=== PATIENT | female | born 1955 | race Caucasian/White ===

== ENCOUNTER 2016-05-30 03:29 | Inpatient (IN) | payer OTHER ==
[~2016-05-30] VITALS: Ht 162.6 cm; Wt 128.8 kg
[~2016-05-30 03:29] MED LIST: AMOX-CLAV 875-1 EACH PO; ATORVASTATIN CA40 M1 PO; CARVEDILOL25 M1 PO; ECOTRIN81 M1 PO; FUROSEMIDE40 M1 PO; HUMALOG KW100 UNIT/1 SC; LEVEMIR FL100 UNIT/1 SC; LOSARTAN POTAS100 M1 PO; SPIRIVA18 MCG INH; SYMBICORT 16010.2 GM INH
--- NOTE | 2016-05-30 03:54 | NUR ---
PT BIBA FROM HOME W/ SOB. EMS REPORTS PT SOB X2 DAYS. EMS ADMIN. 1 NEB TX EN ROUTE AND 4 NITROS. UPON ARRIVAL PT SOB, LABORED, USING ACCESSORY MUSCLES TO BREATHE. SATTING 98% ON 100% NONREBREATHER. PT AWAKE AND ALERT, BUT NOT RESPONDING TO QUESTIONS AT THIS TIME BUT FOLLOWING COMMANDS. DENIES CHEST PAIN.
--- NOTE | 2016-05-30 03:54 | NUR ---
AT BEDSIDE UPON ARRIVAL.
--- NOTE | 2016-05-30 03:55 | NUR ---
RESP. AT BEDSIDE.
--- NOTE | 2016-05-30 03:59 | NUR ---
BLOOD DRAWN AND SENT TO LAB SST, LAV, BLUE , IRVIN
--- NOTE | 2016-05-30 04:01 | ED DYSPNEA/ASTHMA COMPLAINT ---
History of Present Illness General Chief Complaint: Dyspnea (COPD, CHF, Other) Stated Complaint: BIBA SOB Source: patient, family, old records, EMS Exam Limitations: clinical condition Vital Signs & Intake/Output Vital Signs & Intake/Output Vital Signs Date Time Temp Pulse Resp B/P Pulse O2 O2 Flow FiO2 Ox Delivery Rate 05/30 433 99.4 84 20 148/76 97 BIPAP 40% 05/30 0422 102 194/102 05/30 0410 98 Non 100% ReBreather 05/30 401 98 BIPAP 40% 05/30 0355 100 99 05/30 0348 99.9 102 24 194/102 98 Non 100% ReBreather Allergies Coded Allergies: NO KNOWN ALLERGIES (11/20/12) Reconcile Medications Aspirin (Ecotrin) 81 MG TABLET.DR 1 TAB PO DAILY HEART HEALTH (Reported) Atorvastatin Calcium 40 MG TABLET 40 MG PO 1700 CHOLESTEROL Budesonide/Formoterol Fumarate (Symbicort 160-4.5 Mcg Inhaler) 10.2 GM HFA.AER.AD 2 PUF INH BID COPD Carvedilol 25 MG TABLET 1 TAB PO BID HTN (Reported) Furosemide 40 MG TABLET 1 TAB PO BID CHF Insulin Detemir (Levemir Flextouch) 100 UNIT/1 ML INSULN.PEN 25 U SC DAILY DIABETES (Reported) Insulin Lispro (Humalog Kwikpen U-100) 100 UNIT/1 ML INSULN.PEN 10 U SC AC DIABETES (Reported) Losartan Potassium 100 MG TABLET 1 TAB PO DAILY BLOOD PRESSURE (Reported) Tiotropium Line [place] (Spiriva) 18 MCG CAP.W.DEV 1 PUF INH DAILY COPD Core Measure Meds Pre-Hospital aspirin Triage Note: PT BIBA FROM HOME W/ SOB. EMS REPORTS PT SOB X2 DAYS. EMS ADMIN. 1 NEB TX EN ROUTE AND 4 NITROS. UPON ARRIVAL PT SOB, LABORED, USING ACCESSORY MUSCLES TO BREATHE. SATTING 98% ON 100% NONREBREATHER. PT AWAKE AND ALERT, BUT NOT RESPONDING TO QUESTIONS AT THIS TIME BUT FOLLOWING COMMANDS. DENIES CHEST PAIN. Triage Nurses Notes Reviewed? yes Unable To Obtain Hx Due To: patient unresponsiveness Onset: Last week Duration: day(s):, continues in ED, getting worse Timing: recent history Severity: severe Activities at Onset: rest Prior Episodes/Possible Cause: frequent episodes Modifying Factors: Improves With: rest. Worsens With: movement. Associated Symptoms: cough, edema, weakness LMP (ages 10-50): post menopausal : No Patient currently breastfeeds: No HPI: Spouse reports one week prior to admission patient had increasing weakness shortness of breath cough decreased appetite. She had severe shortness of breath prior to admission nebs nitroglycerin supplemental oxygen given. She reports there was no fever chills chest pain nausea vomiting diarrhea abdominal pain dysuria rash bleeding Past History Travel History Traveled to [place] past 21 day No Medical History Any Pertinent Medical History? 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 MOTHER (Hypothyroidism Chronic Bronchitis). SISTER (Asthma from severe asthmatic attack). Hx Contributory? No Review of Systems Review of Systems Constitutional: Reports: see HPI, weakness. EENTM: Reports: no symptoms. Respiratory: Reports: see HPI, cough, short of breath. Cardiovascular: Reports: see HPI, edema. GI: Reports: no symptoms. Genitourinary: Reports: no symptoms. Musculoskeletal: Reports: no symptoms. Skin: Reports: no symptoms. Neurological/Psychological: Reports: no symptoms. Hematologic/Endocrine: Reports: no symptoms. Immunologic/Allergic: Reports: no symptoms. All Other Systems: Reviewed and Negative Physical Exam Physical Exam General Appearance: well developed/nourished, lethargic, severe distress, obese Head: atraumatic, normal appearance Eyes: Bilateral: normal appearance, PERRL, EOMI. Ears, Nose, Throat: normal pharynx, normal ENT inspection Neck: normal inspection, supple, full range of motion, no midline tenderness Respiratory: chest non-tender, decreased breath sounds, rhonchi, wheezing, respiratory distress Cardiovascular: regular rate/rhythm, normal peripheral pulses, tachycardia, norml femoral pulses equa Peripheral Pulses: 4+ carotid (R), 4+ carotid (L) Gastrointestinal: normal bowel sounds, soft, non-tender, no organomegaly Extremities: normal range of motion, pedal edema, no ligament instability Neurologic/Psych: racing mechanic II-XII nml as tested, disoriented x 3, motor weakness Skin: intact, cyanosis, pallor Lymphatic: no anterior cervical cathy Core Measures ACS in differential dx? Yes Severe Sepsis Present: No Septic Shock Present: No Progress Differential Diagnosis: AMI, CHF, COPD, pneumonia Plan of Care: Orders Procedure Date/time Status Patient Data 05/30 455 Active Admit to inpatient 05/30 408 Active Intake & Output 05/30 408 Active BIPAP 05/30 349 Complete ACETONE 05/30 342 Complete ARTERIAL BLOOD GAS (GEN) 05/30 336 Complete BLOOD CULTURE 05/30 336 Active TROPONIN LEVEL 05/30 336 Complete COMPREHENSIVE METABOLIC PANEL 05/30 336 Complete CBC WITHOUT DIFFERENTIAL 05/30 336 Complete B-TYPE NATRIURETIC PEP (BNP) 05/30 336 Complete EKG 05/30 329 Active Laboratory Tests 05/30/16356: Anion Gap 9, Estimated GFR 50 L, BUN/Creatinine Ratio 29.1 H, Glucose 386 H, Calcium 8.5, Total Bilirubin 2.1 H, AST 98 H, ALT 78 H, Alkaline Phosphatase 170 H, Troponin I 0.02, Stq-N-Byuutyqcgax Pept 3690 H, Total Protein 6.9, Albumin 3.4 L, Globulin 3.5, Albumin/Globulin Ratio 1.0 L, CBC w Diff NO MAN DIFF REQ, RBC 4.35, MCV 89.1, MCH 29.5, RDW 15.3 H, MPV 8.5, Gran % 78.5 H, Lymphocytes % 5.1 L, Monocytes % 15.3 H, Eosinophils % 1.0, Basophils % 0.1, Absolute Granulocytes 5.8, Absolute Lymphocytes 0.4 L, Absolute Monocytes 1.1 H, Absolute Eosinophils 0.1, Absolute Basophils 0, PUBS MCHC 33.2, Acetone Level NEGATIVE 05/30/16 033: pH 7.17 *L, pCO2 81 *H, pO2 204 H, HCO3 29 H, ABG O2 Sat (Measured) 97.0, P-50 (Temp Corrected) Y, Carboxyhemoglobin 1.5, O2 Concentration % 100%, Temperature 99.9, O2 Delivery Method NRB, Phlebotomy Draw Site RIGHT RADIAL Microbiology 05/30 401 BLOOD: Blood Culture - RECD 05/30 356 BLOOD: Blood Culture - RECD Diagnostic Imaging: Viewed by Me: Radiology Read. Discussed w/RAD: Radiology Read. Initial ED EKG: LBBB, nonspecific ST T wave chg Prior EKG: unchanged Rhythm Strip: sinus tachycardia Departure Departure Time of Disposition: 399 Disposition: STILL A PATIENT Condition: Stable Clinical Impression Primary Impression: Acute respiratory failure with hypercapnia Secondary Impressions: CHF (congestive heart failure) Qualifiers: Congestive heart failure type: systolic Congestive heart failure chronicity: acute Qualified Code: I50.21 - Acute systolic (congestive) heart failure COPD with exacerbation Hyperglycemia Referrals: PATIENT HAS NO PRIMARY CARE DR (PCP/Family) Departure Forms: Customer Survey General Discharge Information Admission Note Spoke With: GLORIA TEIXEIRA MD Documentation of Exam: Documentation of any treatments & extenuating circumstances including Concerns Regarding Discharge (functional status, medication knowledge or non-compliance, living conditions, etc.) that warrant an admission rather than observation: Cardiac monitoring supplemental oxygen/bipap IV diuresis medication adjustment serial lab exam serial EKG cardiology evaluation pulmonary evaluation continuing care discharge planning Critical Care Note Critical Care Note Critical Care Time: 30-74 min (40)
[2016-05-30 04:09] LABS: ABSOLUTE BASOPHIL COUNT 0 /CUMM (0.0-0.2); ABSOLUTE EOSINOPHIL COUNT 0.1 /CUMM (0.0-0.7); ABSOLUTE GRANULOCYTE CT 5.8 /CUMM (1.4-6.5); ABSOLUTE LYMPH COUNT 0.4 /CUMM (1.2-3.4); ABSOLUTE MONOCYTE COUNT 1.1 /CUMM (0.10-0.60); BASOPHIL % 0.1 % (0.0-2.0); HEMATOCRIT 38.7 % (37-47); MEAN CORPUSCULAR HGB 29.5 PG (27.0-31.0); MEAN CORPUSCULAR HGB CONC 33.2 G/DL (33.0-37.0); MEAN CORPUSCULAR VOLUME 89.1 FL (81.0-99.0); MEAN PLATELET VOLUME 8.5 FL (7.4-10.4); PLATELET COUNT 204 /CUMM (130-400); RBC DISTRIBUTION WIDTH 15.3 % (11.5-14.5); RED BLOOD CELL CT 4.35 /CUMM (4.20-5.40); WHITE BLOOD CELL COUNT 7.4 /CUMM (4.8-10.8)
[2016-05-30 04:11] LABS: GRANULOCYTE % 78.5 % (42.2-75.2)
--- NOTE | 2016-05-30 04:22 | NUR ---
PT MEDICATED WITH 1.25MG VASOTEC PER ORDER FOR MANUAL BP 194/102. (SEE EMAR). WILL REEVAL.
--- NOTE | 2016-05-30 04:24 | RADIOLOGY REPORT ---
EXAMINATION: XR PORTABLE CHEST CLINICAL INFORMATION: Cough with shortness of breath. CHF. COMPARISON: Multiple priors, most recently CT from 09/06/2015. TECHNIQUE: Portable AP view of the chest was obtained. FINDINGS: Cardiac leads overlie the chest. The lungs are well expanded. Central vascular prominence. Bronchial wall thickening noted. No dense consolidation. No effusion. No pneumothorax. The cardiomediastinal silhouette remains prominent. IMPRESSION: Hazy basilar opacities with bronchial wall thickening. This could be associated with a small airways process versus mild edema.
--- NOTE | 2016-05-30 04:25 | NUR ---
PT ALERT, AWAKE AND TALKING. ASKING FOR WATER, PER PT IS TO WAIT A BIT BEFORE ALLOWING HER TO DRINK. PT REPORTS "I FEEL BETTER." PT ON BIPAP 40% BY RESP THERAPY. SATTING 98%. PT LESS DIAPHORETIC. AT BEDSIDE.
--- NOTE | 2016-05-30 04:34 | NUR ---
PT BP 148/76 MANUALLY. WHEN ASKED IF HER BREATHING FEELS BETTER PT RESPONDED "YES, MUCH, I JUST WANT A DRINK." AWARE SHE IS NPO AT THE MOMENT.
--- NOTE | 2016-05-30 05:01 | History & Physical ---
KELSEY GRUBBS,[facility] 05/30/16 6160: General Information and HPI MD Statement: I have seen and personally examined DARRON DEJESUS and documented this H&P. The patient is a 61 year old F who presented with a patient stated chief complaint of dyspnea. Source of Information: patient, family, old records Exam Limitations: no limitations History of Present Illness: 61-year-old woman with a past medical history significant for hypertension, diabetes mellitus and systolic congestive heart failure who presented to the hospital with increased dsypnea. Patient states that her symptoms began approximately 48 hours ago when she felt that she was having a more difficult time breathing. Last evening The patient was sitting at home watching TV and felt increasingly lethargic and malaise and it was then that her family members decided to call the ambulance and bring her to the emergency department. The patient does state that she may have been exposed to ill contacts owing to the fact that her grandson seems to have symptoms of a URI. The patient also reports decreased medical compliance in the setting of not having taken her diuretic as she normally alternates between a 20 mg to 40 mg dose with pending whether she has to go out or not. Patient states that she's been taking 20 mg dose of Lasix. The patient denies any fever chills nausea vomiting. The patient's was at the bedside during the clinical encounter. Allergies/Medications Allergies: Coded Allergies: NO KNOWN ALLERGIES (11/20/12) Home Med list Aspirin (Ecotrin) 81 MG TABLET.DR 1 TAB PO DAILY HEART HEALTH (Reported) Atorvastatin Calcium 40 MG TABLET 40 MG PO 1700 CHOLESTEROL Budesonide/Formoterol Fumarate (Symbicort 160-4.5 Mcg Inhaler) 10.2 GM HFA.AER.AD 2 PUF INH BID COPD Carvedilol 25 MG TABLET 1 TAB PO BID HTN (Reported) Furosemide 40 MG TABLET 1 TAB PO BID CHF Insulin Detemir (Levemir Flextouch) 100 UNIT/1 ML INSULN.PEN 25 U SC DAILY DIABETES (Reported) Insulin Lispro (Humalog Kwikpen U-100) 100 UNIT/1 ML INSULN.PEN 10 U SC AC DIABETES (Reported) Losartan Potassium 100 MG TABLET 1 TAB PO DAILY BLOOD PRESSURE (Reported) Tiotropium [place] (Spiriva) 18 MCG CAP.W.DEV 1 PUF INH DAILY COPD Compliance With Home Meds: POOR Past History Travel History Traveled to [place] past 21 day No Medical History Neurological: NONE EENT: NONE Cardiovascular: CHF, hypertension Respiratory: CHF Gastrointestinal: NONE Hepatic: NONE Renal: NONE Musculoskeletal: NONE Psychiatric: NONE Endocrine: IDDM Blood Disorders: NONE Cancer(s): NONE 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 MOTHER (Hypothyroidism Chronic Bronchitis). SISTER (Asthma from severe asthmatic attack). Psychosocial History Where do you live? Home Who Do You Live With? spouse Services at Home: None Primary Language: Tunisian Smoking Status: Former Smoker ETOH Use: denies use Functional Ability ADLs Independent: dressing, eating, toileting, bathing. Ambulation: independent IADLs Independent: shopping, housework, finances, food prep, telephone, transportation , medication admin. Review of Systems Review of Systems Constitutional: Denies: chills, fever. Cardiovascular: Reports: edema, palpitations. Denies: chest pain, orthopena. Respiratory: Reports: cough, short of breath, sputum production. GI: Denies: abdominal pain, bloating, constipation, diarrhea, distention. Genitourinary: Denies: discharge, dysuria, frequency, hematuria. Musculoskeletal: Denies: back pain, gout, joint pain. Skin: Denies: change in skin color, change in hair/nails, dryness, erythema. Exam & Diagnostic Data Last 24 Hrs of Vital Signs/I&O Vital Signs Date Time Temp Pulse Resp B/P Pulse O2 O2 Flow FiO2 Ox Delivery Rate 05/30 953 97.0 77 20 158/68 94 Nasal 4.0L Cannula 05/30 09 97.9 78 22 128/62 05/30 0904 97.9 78 22 128/62 05/30 0856 78 94 05/30 0641 97.9 76 22 128/62 95 BIPAP 40% 05/30 0556 79 93 05/30 0538 96 BIPAP 40% 05/30 0434 99.4 84 20 148/76 97 BIPAP 40% 05/30 0422 102 194/102 05/30 0410 98 Non 100% ReBreather 05/30 0402 98 BIPAP 40% 05/30 0355 100 99 05/30 0348 99.9 102 24 194/102 98 Non 100% ReBreather Intake & Output 05/30 1600 05/30 0800 05/30 0000 Intake Total 0 Output Total Balance 0 Intake, Oral 0 Patient 104 kg Weight Physical Exam General Appearance Alert, Oriented X3, Cooperative, Mild Distress Cardiovascular Normal S1, Normal S2 Lungs Expiratory Wheezing. Crackles present at bases Abdomen Normal Bowel Sounds, Soft, No Tenderness Neurological Normal Speech, Sensation Intact Extremities Edema 3+. LLE. RLE: AKA Last 24 Hrs of Labs/Robreto: Laboratory Tests 05/30/16 0905: Troponin I 0.02 05/30/16356: Anion Gap 9, Estimated GFR 50 L, BUN/Creatinine Ratio 29.1 H, Glucose 386 H, Calcium 8.5, Total Bilirubin 2.1 H, AST 98 H, ALT 78 H, Alkaline Phosphatase 170 H, Troponin I 0.02, Hat-K-Rptdjljppjf Pept 3690 H, Total Protein 6.9, Albumin 3.4 L, Globulin 3.5, Albumin/Globulin Ratio 1.0 L, CBC w Diff NO MAN DIFF REQ, RBC 4.35, MCV 89.1, MCH 29.5, RDW 15.3 H, MPV 8.5, Gran % 78.5 H, Lymphocytes % 5.1 L, Monocytes % 15.3 H, Eosinophils % 1.0, Basophils % 0.1, Absolute Granulocytes 5.8, Absolute Lymphocytes 0.4 L, Absolute Monocytes 1.1 H, Absolute Eosinophils 0.1, Absolute Basophils 0, PUBS MCHC 33.2, Acetone Level NEGATIVE 05/30/16334: pH 7.17 *L, pCO2 81 *H, pO2 204 H, HCO3 29 H, ABG O2 Sat (Measured) 97.0, P-50 (Temp Corrected) Y, Carboxyhemoglobin 1.5, O2 Concentration % 100%, Temperature 99.9, O2 Delivery Method NRB, Phlebotomy Draw Site RIGHT RADIAL Microbiology 05/30 401 BLOOD: Blood Culture - RECD 05/30 356 BLOOD: Blood Culture - RECD Diagnostic Data EKG Results EKG: Sinus tachycardia, right bundle branch block, no acute ST-T segment change CXR Results SERVICE DATE: 05/30/16 EXAM TYPE: RAD - XRY-PORTABLE CHEST XRAY EXAMINATION: XR PORTABLE CHEST CLINICAL INFORMATION: Cough with shortness of breath. CHF. COMPARISON: Multiple priors, most recently CT from 09/06/2015. TECHNIQUE: Portable AP view of the chest was obtained. FINDINGS: Cardiac leads overlie the chest. The lungs are well expanded. Central vascular prominence. Bronchial wall thickening noted. No dense consolidation. No effusion. No pneumothorax. The cardiomediastinal silhouette remains prominent. IMPRESSION: Hazy basilar opacities with bronchial wall thickening. This could be associated with a small airways process versus mild edema. DICTATED BY: CAT CRUZ MD Assessment/Plan Assessment: 60-year-old woman with a past medical history significant for hypertension, diabetes mellitus and systolic congestive heart failure who presented to the hospital with increased dsypnea. #Acute hypoxic hypercapnic respiratory failure. We will hold off and watch off steroids and antibiotics for now. Continue patient on BiPAP monitor oxygen saturations. Maintain saturations above 92%. ABG. Continue Spiriva Continue Symbicort. If patient continues to deteriorate consider pulmonology consult #Decompensation cardiac failure with reduced ejection fraction. Diurese patient with IV Lasix 40 mg twice a day. Maintain Strict I's and O's and daily weights. Maintain sodium restriction. Due to presentation will have to rule out acute coronary syndrome. Serial troponins and EKG. Every 6hours until resolved #Insulin-dependent diabetes mellitus Begin patient on Levemir 25 units daily Patient on insulin sliding scale Keep blood sugars below 151 hospital. Hemoglobin A1c for long-term glycemic control Consider outpatient follow-up with senior principal architect. #History of hypertension Continue home medications carvedilol, Lasix and lisinopril Ensure blood pressures do not exceed 160/90 #Diet heart healthy with sodium restriction #DVT prophylaxis heparin SQ #CODE STATUS DNR/DNI As Ranked By This Provider Problem List: 1. Hypoxia 2. CHF (congestive heart failure) Qualifiers Congestive heart failure type: systolic Congestive heart failure chronicity: acute Qualified Code: I50.21 - Acute systolic (congestive) heart failure 3. Hyperglycemia 4. CHF (congestive heart failure) 5. Dyspnea 6. Diabetes mellitus type 2 7. COPD 8. Acute hypercapnic respiratory failure Core Measures/Miscellaneous Acute Coronary Syndrome ACS Diagnosis: No Cerebrovascular Accident CVA/TIA Diagnosis: No Congestive Heart Failure CHF Diagnosis: No Venous Thromboembolism VTE Risk Factors: Age > 40 VTE Prophylaxis Ordered Inpt: Pharm- Heparin No Mech VTE prophylaxis d/t: No contraindications No VTE Pharm Prophylaxis d/t: No contraindications VTE Diagnosis: No VTE Type: NONE VTE Confirmed by (Test): NONE Severe Sepsis Severe Sepsis Present: No Septic Shock Septic Shock Present: No Miscellaneous Documentation Attending Case Discussed With: Misty Newsome MD Primary Care Physician: PATIENT HAS NO PRIMARY CARE DR Patient sees these Specialists NA Level of Patient Care: Critical Care (CRI) RIMMA GUERRERO 05/30/16 0513: Resident Review Statement Resident Statement: examined this patient, discussed with journalism intern, agreed with journalism intern, discussed with family, reviewed EMR data (avail), discussed with nursing , discussed with case mgmt, reviewed images, amended to note Other Findings: This is a 61 years old female with a history of hypertension,insulin-dependent diabetes mellitus, and congestive heart failure (HFpEF) with a reported prior ejection fraction of a proximally 45% and prior admisionat [place] on August 2015 for for acute hypoxic respiratory failure secondary to decompensated CHF, and ?? obesity hypoventilation on. She was BIBA for the worsening shortness of breath for two days. She, jessica, had close contact with a sick person (grandson) about a week ago, and for the past few days she noticed worsening dyspnea that reduces her ability to ambulate, and frequent productive cough with a small amounts of green yellow sputum, and increased swelling of her lower extremity. Patient denies any chest pain, palpitation, lightheadedness, dizziness, episodes of syncope/presyncope, nausea vomiting diarrhea fever and chills. She is a former smoker 1 pack a day for 40 years denies alcohol ingestion Lives with her son and his family; ambulates uses cane; independence in taking care of herself needs minimal assistance. Review of system: Patient complains of fatigue and dyspnea. Physical exam: Alert and oriented 3, mild to moderate respiratory distress on BiPAP; HEET: No JVD; CVS: S1, loud S2, no S3 no S4, no murmur; lungs: Decreased air movement, bilateral basilar crackles; abdomen is soft, no hepatojugular reflux; left lower extremity below-knee amputation, right lower extremity: 2-3+ pitting edema. Initial vital signs: Temperature 99.9/heart rates 102/respiratory 24/blood pressure 194/102 In the emergency room patient received Vasotec IV, IV Lasix and IV Solu-Medrol, respiratory treatments. Her ABG:> 7.17/PCO2 81/29. She was started on BiPAP. EKG: Sinus tachycardia, right bundle branch block, no acute ST-T segment change WBC 7.4 left shift or bandemia, H and H 12.9/38.7 and platelet count 204 proBNP 3690 alkaline phosphatase 170 blood sugar 386 bilirubin 2.1 ALT 78 AST 98, troponin negative Assessments and Plan 61-year-old woman was admitted for acute on chronic hypoxic hypercapnic respiratory failure secondary to decompensated heart failure. #1 acute hypoxic hypercapnic respiratory failure: Former heavy smoker, and diagnosis of obstructive sleep apnea(elevated baseline bicarbonates). Current episode of acute on chronic respiratory failure is more probably related to decompensation of her heart. Patient had sick contact, but he does not seem to suffers from an acute exacerbation of COPD. Chest x-ray did not show any symptom of acute pneumonia nor findings in our clinical exam. * Continue BiPAP * Continue her spiriva * Continue Symbicort * Continue oxygen with O2 saturation of about 90-92% * No need for IV Solu-Medrol * Keep off antibiotics * Avoids narcotics and hypnotics #2 decompensation of heart failure with reduced ejection fraction: Compliance with medication and diet is not clear. Among the causes of decompensation acute coronary syndrome and arrhythmiato be ruled out. Decompensation could be secondary to a simple upper respiratory tract viral infection. * Admit to telemetry for continuous heart monitoring * Trend troponin 9 AM and 3 PM * Daily weights, ins and outs * Daily BEP; monitor renal function * Heart healthy diet with fluid restriction of 1800 mL * Continue her home-dose carvedilol * Continue losartan at home dose, 100 mg by mouth daily * Diuresis with IV Lasix 40 mg milligrams IV twice a day at 10 and at 4 PM * No need for new echo * Consult cardiology in the a.m. #3 insulin-dependent diabetes * Diabetes diets * Insulin Levemir 25 units daily * Insulin aspart sliding scale before meals and bedtime #4 hypertension * Lisinopril and Lasix, and carvedilol #5 patient is DNR/DNI, mild pain pathway, heparin 5000 units every 8 hours subcutaneous
--- NOTE | 2016-05-30 05:45 | NUR ---
IPOC ADMISSION 1 AND 2 COMPLETE.
--- NOTE | 2016-05-30 05:47 | NUR ---
PT NSR ON MONITOR. SATTING 94% ON THE BIPAP. OFFERS NO COMPLAINTS AT THIS TIME. WILL CTM.
--- NOTE | 2016-05-30 06:06 | NUR ---
HOUSE STAFF AT BEDSIDE FOR EVAL
--- NOTE | 2016-05-30 07:52 | NUR ---
PT HAS BED ASSIGNMENT 102-1. RN NOTIFIED.
--- NOTE | 2016-05-30 09:04 | NUR ---
PT HAS BED ASSIGNMENT 176-1. ROOM NOT CLEAN. RN NOTIFIED.
--- NOTE | 2016-05-30 09:05 | NUR ---
REPEAT DRAWN AND SENT TO LAB.
--- NOTE | 2016-05-30 09:23 | NUR ---
PT INCONTINENT LARGE AMOUNT OF URINE, LINENS CHANGED, SKIN AND PERICARE GIVEN, DIABETIC/HEART HEALTHY DIET GIVEN, PT TAKING ICE WATER AND AM MEDS WELL, NO SOB OR RESP DISTRESS NOTED.
--- NOTE | 2016-05-30 09:46 | NUR ---
REPORT CALLED TO TELE NURSE ZHANG, RAFA AND RESP CALLED FOR TRANSFER TO ROOM # 176.
--- NOTE | 2016-05-30 09:56 | NUR ---
PT TRIAL OFF BIPAP, O2 SATS 87-88%, PLACED ON 4L NC, O2 SATS 96% AT THIS TIME. AWAITING DISTRIBUTION AND RESP FOR TRANSFER TO [facility] # 176.
--- NOTE | 2016-05-30 11:00 | NUR ---
ADMITTED PATIENT TO TELE FROM ER. PATIENT ARRIVED VIA STETCHER WITH AT HER SIDE. ADMITTING DX ACUTE CHF AND SOB. PATIENT ALERT AND ORIENTATED X3.VSS. ON 3L VIA NC. SATURATION 94%. NO SOB NOTED. PERRY LUNGS DIMINISHED WITH MILD EXP WHEEZES IN RIGHT LUNG. RESP THERAPIST AT BEDSIDE. NSR ON TELE. DENIES CP. ABD OBESED. INCONTINENT OF URINE. LEFT BKA NOTED. PROSTHESIS AT BEDSIDE. ASSIST X 1 TO BSC. ORIENTATED TO ROOM AND CALL LIGHT. WILL FOLLOW PLAN OF CARE.
[2016-05-30 11:20] VITALS: BP 133/70
--- NOTE | 2016-05-30 12:24 | Admission Certification ---
Admission Certification Certification Statement - As attending physician, I certify that at the time of - admission, based on clinical presentation, severity of - symptoms, need for further diagnostic testing and - therapeutic interventions, and risk of adverse outcomes - without in-hospital treatment, in my clinical assessment, - this patient requires an acute hospital stay for a minimum - of two nights or longer. I have also considered psychsocial - factors such as support system, advanced age, financial - issues, cognitive issues, and failed out-patient treatments, - past re-admission history, safety of patient, and lack of - compliance as applicable. Specific rationale supporting this admission is: Acute hypercapnic respiratory failure
--- NOTE | 2016-05-30 12:36 | PN- Att Addend ---
Attending Addendum Attending Brief Note Patient seen and examined. Plan of care discussed with the medical team and the patient. Available lab work and radiology test reports were reviewed. This is a 61-year-old woman with a past medical history significant for hypertension, diabetes mellitus and systolic congestive heart failure this Lasix at home presented with 2 days history of increasing difficulty breathing. She recently had some dry cough without any recent fever or chills. She denies any chest pain nausea vomiting or diarrhea. She has been feeling tired. It emergency room she was found to be lethargic and her ABG had shown increased CO2. She was put on BiPAP and admitted. Please see sales and marketing intern note for detailed past medical history, social history, family history and medication and allergies. Vital Signs Date Time Temp Pulse Resp B/P Pulse O2 O2 Flow FiO2 Ox Delivery Rate 05/30 1120 98.8 73 18 133/70 95 Nasal 3.0L Cannula 05/30 1015 95 Nasal 3.0L Cannula 05/30 0954 97.0 77 20 158/68 94 Nasal 4.0L Cannula 05/30 0904 97.9 78 22 128/62 05/30 0904 97.9 78 22 128/62 05/30 0856 78 94 / 0641 97.9 76 22 128/62 95 BIPAP 40% 05/30 0556 79 93 05/30 0538 96 BIPAP 40% 05/30 0434 99.4 84 20 148/76 97 BIPAP 40% 05/30 0422 102 194/102 05/30 0410 98 Non 100% ReBreather 05/30 0402 98 BIPAP 40% 05/30 0355 100 99 05/30 0348 99.9 102 24 194/102 98 Non 100% ReBreather Intake & Output 05/30 1600 05/30 0800 05/30 0000 Intake Total 0 Output Total Balance 0 Intake, Oral 0 Patient 229 lb Weight Exam: General: Patient is obese currently awake but lethargic and oriented without any distress; she is currently off the BiPAP CVS: S1 plus S2 without any murmur or gallops Chest: Few scattered crepitation without any wheeze. There is no respiratory distress. Abdomen: Soft nontender, bowel sound present, no guarding or rebound SUPERVISOR LIQUEFACTION: Awake alert oriented without any focal neuro deficit and follows command appropriately Extremities: No edema; no clubbing or cyanosis noted Laboratory Tests 05/30 05/30 05/30 1105 0944 0357 Blood Gas pH (7.35 - 7.45 PH) 7.38 pCO2 (35 - 45 TORR) 49 H pO2 (80 - 100 TORR) 79 L HCO3 (21 - 28 MEQ/L) 28 ABG O2 Sat (Measured) (>96.0 %) 93.0 L P-50 (Temp Corrected) N Carboxyhemoglobin (1.5 - 5.0 %) 1.9 O2 Concentration % 3LPM O2 Delivery Method NC Chemistry Sodium (137 - 145 mmol/L) 138 Potassium (3.5 - 5.1 mmol/L) 5.5 H Chloride (98 - 107 mmol/L) 100 Carbon Dioxide (22 - 30 mmol/L) 29 Anion Gap (5 - 16) 9 BUN (7 - 17 mg/dL) 32 H Creatinine (0.5 - 1.0 mg/dL) 1.1 H Estimated GFR (>60 ml/min) 50 L BUN/Creatinine Ratio (7 - 25 %) 29.1 H Glucose (65 - 99 mg/dL) 386 H Calcium (8.4 - 10.2 mg/dL) 8.5 Total Bilirubin (0.2 - 1.3 mg/dL) 2.1 H AST (14 - 36 U/L) 98 H ALT (9 - 52 U/L) 78 H Alkaline Phosphatase (<127 U/L) 170 H Troponin I (< 0.11 ng/ml) 0.02 0.02 Agg-D-Wnzalijmufr Pept (<125 pg/mL) 3690 H Total Protein (6.3 - 8.2 g/dL) 6.9 Albumin (3.5 - 5.0 g/dL) 3.4 L Globulin (1.9 - 4.2 gm/dL) 3.5 Albumin/Globulin Ratio (1.1 - 2.2 %) 1.0 L Hematology CBC w Diff NO MAN DIFF REQ WBC (4.8 - 10.8 /CUMM) 7.4 RBC (4.20 - 5.40 /CUMM) 4.35 Hgb (12.0 - 16.0 G/DL) 12.9 Hct (37 - 47 %) 38.7 MCV (81.0 - 99.0 FL) 89.1 MCH (27.0 - 31.0 PG) 29.5 RDW (11.5 - 14.5 %) 15.3 H Plt Count (130 - 400 /CUMM) 204 MPV (7.4 - 10.4 FL) 8.5 Gran % (42.2 - 75.2 %) 78.5 H Lymphocytes % (20.5 - 51.1 %) 5.1 L Monocytes % (1.7 - 9.3 %) 15.3 H Eosinophils % (0 - 5 %) 1.0 Basophils % (0.0 - 2.0 %) 0.1 Absolute Granulocytes (1.4 - 6.5 /CUMM) 5.8 Absolute Lymphocytes (1.2 - 3.4 /CUMM) 0.4 L Absolute Monocytes (0.10 - 0.60 /CUMM) 1.1 H Absolute Eosinophils (0.0 - 0.7 /CUMM) 0.1 Absolute Basophils (0.0 - 0.2 /CUMM) 0 PUBS MCHC (33.0 - 37.0 G/DL) 33.2 Miscellaneous Phlebotomy Draw Site LEFT RADIAL Toxicology Acetone Level (NEGATIVE) NEGATIVE 05/30 334 Blood Gas pH (7.35 - 7.45 PH) 7.17 *L pCO2 (35 - 45 TORR) 81 *H pO2 (80 - 100 TORR) 204 H HCO3 (21 - 28 MEQ/L) 29 H ABG O2 Sat (Measured) (>96.0 %) 97.0 P-50 (Temp Corrected) Y Carboxyhemoglobin (1.5 - 5.0 %) 1.5 O2 Concentration % 100% Temperature (97.0 - 100.0 FARH) 99.9 O2 Delivery Method NRB Miscellaneous Phlebotomy Draw Site RIGHT RADIAL Microbiology Date/Time Procedure - Status Source Growth 05/30 401 Blood Culture - RECD BLOOD 05/30 356 Blood Culture - RECD BLOOD Chest x-ray shows Hazy basilar opacities with bronchial wall thickening. This could be associated with a small airways process versus mild edema. Assessment and problem list * Acute hypercarbic respiratory failure * History of congestive heart failure with possible exacerbation * Hypoxia * Acute renal failure with elevated creatinine * Hyperkalemia * Abnormal LFTs and elevated bilirubin- possibly either due to medication or congestion of liver Plan * Continue IV Lasix 40 mg IV daily * Ruled out for CA * Continue incentive spirometry * TRC nebs as a treatment * Taper oxygen as tolerated * Pulmonary consult * Avoid narcotics and hypnotics * For now no need for antibiotics * Repeat LFTs tomorrow
--- NOTE | 2016-05-30 19:03 | Cons- Cardiology ---
General Information and HPI Consulting Request Date of Consult: 05/30/16 Requested By: LLUVIA GRUBBS,GLORIA History of Present Illness: Sammi is a 61 year old female with history of hypertension, diabetes and congestive heart failure who presented to [facility] with complaints of shortness of breath. She began feeling poorly about a week ago and developed a mostly unproductive cough until yesterday when it became productive of small amounts of greenish sputum. She had orthopnea and did not feel that she could lie down. Some lower extremity swelling was also noted. She has noted weakness and malaise. Otherwise this patient denies any fever, chills, nausea, vomiting, chest discomfort, lightheadedness or palpitations. In the ER the patient was afebrile with normal WBC count but did have elevated hepatic transaminases. In addition, her chest X-ray showed bronchial thickening without overt pulmonary edema. The patient was exposed to her grandson who has an upper respiratory infection. It should also be noted that this patient had an indiscretion with sodium and also has poor compliance with her diuretic therapy. Prior cardiac workup has included an echocardiogram showing a mildly decreased EF of 40-45% with moderate left ventricular hypertrophy, mild biatrial enlarment and moderate mitral, mild tricuspid amd pulmonic regurgitation and mild pulmonary hypertension. Allergies/Medications Allergies: Coded Allergies: NO KNOWN ALLERGIES (11/20/12) Home Med List: Aspirin (Ecotrin) 81 MG TABLET.DR 1 TAB PO DAILY HEART HEALTH (Reported) Atorvastatin Calcium 40 MG TABLET 40 MG PO 1700 CHOLESTEROL Budesonide/Formoterol Fumarate (Symbicort 160-4.5 Mcg Inhaler) 10.2 GM HFA.AER.AD 2 PUF INH BID COPD Carvedilol 25 MG TABLET 1 TAB PO BID HTN (Reported) Furosemide 40 MG TABLET 1 TAB PO BID CHF Insulin Detemir (Levemir Flextouch) 100 UNIT/1 ML INSULN.PEN 25 U SC DAILY DIABETES (Reported) Insulin Lispro (Humalog Kwikpen U-100) 100 UNIT/1 ML INSULN.PEN 10 U SC AC DIABETES (Reported) Losartan Potassium 100 MG TABLET 1 TAB PO DAILY BLOOD PRESSURE (Reported) Tiotropium [place] (Spiriva) 18 MCG CAP.W.DEV 1 PUF INH DAILY COPD Review of Systems Review of Systems: A twelve point review of systems is unremarkable other than the above. Past History Travel History Traveled to [place] past 21 day No Medical History Neurological: NONE EENT: NONE Cardiovascular: CHF, hypertension Respiratory: CHF Gastrointestinal: NONE Hepatic: NONE Renal: NONE Musculoskeletal: NONE Psychiatric: NONE Endocrine: IDDM Blood Disorders: NONE Cancer(s): NONE MANAGER WHOLESALE/Reproductive: NONE Other Medical Hx: traumatic amputation of LLE Surgical History Surgical History: cholecystectomy Family History Relations & Conditions If Any: FATHER (Lung Cancer). MOTHER (Hypothyroidism Chronic Bronchitis). SISTER (Asthma from severe asthmatic attack). Psychosocial History Where Do You Live? Home Who Do You Live With? spouse Services at Home: None Primary Language: [place] Citizen Smoking Status: Former Smoker ETOH Use: denies use Functional Ability ADLs Independent: dressing, eating, toileting, bathing. Ambulation: independent IADLs Independent: shopping, housework, finances, food prep, telephone, transportation , medication admin. ECHO Results (as available) Report: Moderate left ventricular dilatation. Mildly reduced left ventricular systolic function. Left ventricular ejection fraction is estimated at 40-45%. Mild mitral annular calcification. Mild mitral regurgitation. Trace tricuspid regurgitation. Mild pulmonic regurgitation. Exam & Diagnostic Data Vital Signs and I&O Vital Signs Date Time Temp Pulse Resp B/P Pulse O2 O2 Flow FiO2 Ox Delivery Rate 05/30 1919 94 Nasal 3.0L Cannula 05/30 1600 Nasal 3.0L Cannula 05/30 1426 Nasal 3.0L Cannula 05/30 1120 98.8 73 18 133/70 95 Nasal 3.0L Cannula 05/30 1015 95 Nasal 3.0L Cannula 05/30 0954 97.0 77 20 158/68 94 Nasal 4.0L Cannula 05/30 0904 97.9 78 22 128/62 /05 0904 97.9 78 22 128/62 / 0856 78 94 / 0641 97.9 76 22 128/62 95 BIPAP 40% 05/30 0556 79 93 05/30 0538 96 BIPAP 40% 05/30 0434 99.4 84 20 148/76 97 BIPAP 40% 05/30 0422 102 194/102 05/30 0410 98 Non 100% ReBreather 05/30 0402 98 BIPAP 40% 05/30 0355 100 99 05/30 0348 99.9 102 24 194/102 98 Non 100% ReBreather Intake & Output 05/30 1600 05/30 0800 05/30 0000 05/29 1600 05/29 0800 05/29 0000 Intake Total 480 0 Output Total 200 Balance 280 0 Intake, Oral 480 0 Number 1 Bowel Movements Output, Urine 200 Patient 229 lb Weight Physical Exam: General: WD/obese female in NAD; alert and oriented x 3 HEENT: NC/AT, PERRL, EOMI, clear oropharnx Neck: no JVD, no carotid bruit Heart: RRR with 2/6 systolic murmur Lungs: no crackles or wheezing ABdomen: soft, NT, +ve bowel sounds Extremities: left BKA, no edema Assessment/Plan Assessment/Plan * This patient has symptoms that are very suggestive of a bronchitis with a prominent cough. This is likely a viral syndrome that is also affecting her LFT' s. I do not see evidence of any significant RV and LV failure at this time. In consideration of her elevated hepatic transaminases I would hold her statin for now. * Continue the patient's usual dose of diuretics. * Obtain an echocardiogram. * This patient likely has obstuctive sleep apnea. Consult Acknowledgment - Thank you for your consult request.
[2016-05-30 23:39] VITALS: BP 140/68
--- NOTE | 2016-05-31 08:07 | PN- Housestaff ---
MILO GARSIA 05/31/16 0803: Subjective Follow-up For: Shortness of breath Congestive heart failure Subjective: Patient is seen and examined. She did not use BiPAP last night. She is still continues to cough and bring yellowish phlegm. Afebrile in 24 hours. She is transitioned from high flow to the 3 L nasal cannula. Review of systems negative for any chest pain abdominal pain, burning micturition, headache, Dizziness. Review of Systems Constitutional: Reports: see HPI. Objective Last 24 Hrs of Vital Signs/I&O Vital Signs Date Time Temp Pulse Resp B/P Pulse O2 O2 Flow FiO2 Ox Delivery Rate 05/31 1050 96 Nasal 2.0L Cannula 05/31 1015 98 Nasal 3.0L Cannula 05/31 0904 73 112/70 05/31 0904 73 112/70 05/31 0850 98.1 73 20 112/70 99 Nasal 3.0L Cannula 05/31 0000 Nasal 3.0L Cannula 05/30 2339 98.5 70 20 140/68 98 Nasal Cannula 05/30 2309 75 140/68 05/30 1919 94 Nasal 3.0L Cannula 05/30 1600 Nasal 3.0L Cannula 05/30 1426 Nasal 3.0L Cannula 05/30 1120 98.8 73 18 133/70 95 Nasal 3.0L Cannula Intake & Output 05/31 1600 05/31 0800 05/31 0000 Intake Total 120 50 480 Output Total 400 650 Balance 120 -350 -170 Intake, Oral 120 50 480 Output, Urine 400 650 Patient 128.452 kg Weight Physical Exam General Appearance: Alert, Oriented X3, Cooperative, No Acute Distress Skin: No Rashes, No Breakdown HEENT: Atraumatic Neck: Supple Cardiovascular: Normal S1, Normal S2 Lungs: bilateral crackles and rhonchi Abdomen: Normal Bowel Sounds, Soft, No Tenderness Current Medications: Current Medications Sig/Shannan Start time Last Medication Dose Route Stop Time Status Admin Acetaminophen 650 MG ONCE ONE 05/30 1300 DC 05/30 PO 05/30 1301 1326 Albuterol Sulfate 3 ML Q4P PRN 05/30 1100 AC 05/31 INH 1014 Aspirin Buffered 81 MG DAILY 05/30 1000 AC 05/31 PO 0823 Atorvastatin Calcium 40 MG 1700 05/30 1700 DC 05/30 PO 1814 Budesonide/ 2 PUF BID 05/30 1000 AC 05/31 Formoterol Fumarate INH 0825 Carvedilol 25 MG BID 05/30 1000 AC 05/31 PO 0904 Furosemide 40 MG 7:30 AM, & 4:30 PM 05/30 0730 AC 05/31 IV 0748 Heparin Sodium 5,000 UNIT Q8 05/30 0707 AC 05/31 (Porcine) SC 0536 Influenza Virus 0.5 ML ONCE ONE 05/30 1130 DC 05/30 Vaccine IM 05/30 1131 1331 Insulin Aspart 0 TIDAC/HS 05/30 2115 AC 05/31 SC 0820 Insulin Aspart 0 TIDAC 05/30 0800 DC 05/30 SC 1814 Insulin Detemir 25 UNITS DAILY 05/30 1000 AC 05/31 SC 0821 Losartan Potassium 100 MG DAILY 05/30 1000 AC 05/31 PO 0904 Tiotropium [place] 1 PUF DAILY 05/30 1000 AC 05/31 INH 0824 Last 24 Hrs of Lab/Roberto Results Last 24 Hrs of Labs/Mics: Laboratory Tests 05/31/16 0720: Anion Gap 7, Estimated GFR 45 L, BUN/Creatinine Ratio 34.2 H, Glucose 176 H, Calcium 8.4, Total Bilirubin 1.0, AST 39 H, ALT 71 H, Alkaline Phosphatase 120 , Total Protein 6.0 L, Albumin 3.0 L, Globulin 3.0, Albumin/Globulin Ratio 1.0 L, CBC w Diff MAN DIFF ORDERED, RBC 3.88 L, MCV 89.2, MCH 29.8, RDW 15.0 H, MPV 8.3, Gran % 53.1, Lymphocytes % 10.2 L, Monocytes % 36.3 H, Eosinophils % 0.1, Basophils % 0.3, Absolute Granulocytes 3.1, Segmented Neutrophils 46, Band Neutrophils 6 H, Absolute Lymphocytes 0.6 L, Lymphocytes 22, Monocytes 26 H, Absolute Monocytes 2.1 H, Absolute Eosinophils 0, Absolute Basophils 0, Platelet Estimate ADEQUATE, Normocytic RBCs VERIFIED, Hypochromic-Microcytic 1+, PUBS MCHC 33.4, Fld Total RBCs Counted 100 05/30/16 1553: Troponin I 0.02 Microbiology 05/30 2216 LOWER RESP: Respiratory Culture - RES 05/30 2216 LOWER RESP: Gram Stain - RES Assessment/Plan Assessment: Patient is 61-year-old female with past medical history of hypertension, diabetes, systolic heart failure came with the chief complaint of difficulty breathing. She had hypercarbic respiratory failure was initially started on BiPAP. Her ABGs improved. She was started on 40 IV Lasix daily, NovoLog sliding scale and her home medications including losartan and Coreg. Chest x-ray shows Hazy basilar opacities with bronchial wall thickening. This could be associated with a small airways process versus mild edema. Problem List Acute hypercarbic respiratory failure History of congestive heart failure with possible exacerbation Acute renal failure Hyperkalemia Abnormal LFTs and elevated bilirubin- possibly either due to medication or congestion of liver Plan Acute hypoxic/hypercarbic respiratory failure Will send sputum for culture and sensitivity patient is currently off any antibiotics Will repeat chest x-ray with AP lateral view To use BiPAP at night as necessary, TRC nebs as necessary patient is on 3 L of nasal Cannula will titrate as tolerated Will get pulmonary consult service on board Systolic congestive heart failure Continue IV Lasix 40 mg IV daily Will get cardiology consult service on board for a possible systolic CHF will repeat an echocardiogram Patient is ruled out for ACS Continue her home meds of statin, carvedilol, aspirin Transaminitis Her LFTs have improved since yesterday we'll continue to monitor Acute kidney injury Creatinine is changed to 1.2, will ensure adequate hydration DVT prophylaxis subcutaneous heparin Patient is DNR/DNI Problem List: 1. ?PNA Pain Ratin Pain Location: Generalized body ache Pain Goal: Pain 4 or less Pain Plan: Tylenol when necessary for pain Tomorrow's Labs & Rationales: cbc bep DIPAK CHAVEZ MD 05/31/16 1735: Attending MD Review Statement Attending Statement Attending MD Statement: examined this patient, discuss w/resident/PA/SPECIAL EDUCATION COORDINATOR, agreed w/resident/PA/SPECIAL EDUCATION COORDINATOR, reviewed EMR data (avail) Attending Assessment/Plan: Improved after BiPAP overnight. Will continue Prednisone, continue Ceftin per pulmonary recommendations, monitor mental status, continue nebulizer therapy, continue home medications.
[2016-05-31 08:08] LABS: ABSOLUTE BASOPHIL COUNT 0 /CUMM (0.0-0.2); ABSOLUTE EOSINOPHIL COUNT 0 /CUMM (0.0-0.7); ABSOLUTE GRANULOCYTE CT 3.1 /CUMM (1.4-6.5); ABSOLUTE LYMPH COUNT 0.6 /CUMM (1.2-3.4); ABSOLUTE MONOCYTE COUNT 2.1 /CUMM (0.10-0.60); BASOPHIL % 0.3 % (0.0-2.0); EOSINOPHIL % 0.1 % (0-5); GRANULOCYTE % 53.1 % (42.2-75.2); HEMATOCRIT 34.6 % (37-47); MEAN CORPUSCULAR HGB 29.8 PG (27.0-31.0); MEAN CORPUSCULAR HGB CONC 33.4 G/DL (33.0-37.0); MEAN CORPUSCULAR VOLUME 89.2 FL (81.0-99.0); MEAN PLATELET VOLUME 8.3 FL (7.4-10.4); PLATELET COUNT 185 /CUMM (130-400); RED BLOOD CELL CT 3.88 /CUMM (4.20-5.40); WHITE BLOOD CELL COUNT 5.8 /CUMM (4.8-10.8)
[2016-05-31 08:50] VITALS: BP 112/70
--- NOTE | 2016-05-31 12:44 | RADIOLOGY REPORT ---
EXAMINATION: XR CHEST CLINICAL INFORMATION: Difficulty breathing. Evaluate for pneumonia. COMPARISON: CXR from 09/04/2015 and 05/30/2016. Chest CT of 09/06/2015. TECHNIQUE: 2 views of the chest were obtained. FINDINGS: The patient has a relatively large body habitus. Cardiac silhouette and central pulmonary vessels are chronically enlarged. There is no acute interstitial pulmonary edema or pleural effusion. The pericardiac fat pads are prominent. The opacity within the right middle lobe adjacent to the pericardiac fat pad likely represents chronic atelectasis; this is similar in appearance compared to 09/04/2015. A linear opacity in the retrocardiac region is compatible with atelectasis, as well. The centrilobular emphysema is more obvious on the chest CT of 09/06/2015. Thoracic aorta is calcified. No acute skeletal findings.. IMPRESSION: 1. Cardiomegaly and pulmonary vascular congestion. 2. There is likely chronic atelectasis within the right middle lobe adjacent to the prominent pericardiac fat pad. Compared to the prior chest radiographs and chest CT of 09/06/2015, there is no evidence of an acute pneumonia. 3. Pulmonary emphysema.
--- NOTE | 2016-05-31 12:59 | Cons- Pulmonary ---
General Information and HPI Consulting Request Date of Consult: 05/31/16 Requested By: Med team History of Present Illness: Sammi is a 61 year old female with history of hypertension, diabetes and congestive heart failure who presented to [facility] with complaints of shortness of breath. She began feeling poorly about a week ago and developed a mostly unproductive cough until yesterday when it became productive of small amounts of greenish sputum. She had orthopnea and did not feel that she could lie down. Some lower extremity swelling was also noted. She has noted weakness and malaise. Otherwise this patient denies any fever, chills, nausea, vomiting, chest discomfort, lightheadedness or palpitations. In the ER the patient was afebrile with normal WBC count but did have elevated hepatic transaminases. In addition, her chest X-ray showed bronchial thickening without overt pulmonary edema. The patient was exposed to her grandson who has an upper respiratory infection. It should also be noted that this patient had an indiscretion with sodium and also has poor compliance with her diuretic therapy. Prior cardiac workup has included an echocardiogram showing a mildly decreased EF of 40-45% with moderate left ventricular hypertrophy, mild biatrial enlarment and moderate mitral, mild tricuspid amd pulmonic regurgitation and mild pulmonary hypertension. Unfortunately she continues to smoke. She does use oxygen at bedtime but not too compliant. She also has history suggestive of obesity hypoventilation syndrome and has been resistant to go for a sleep study and she does not wish to go on any CPAP or BiPAP therapy. In the recent past she has had increasing pedal edema and has weight gain. I'm not too sure whether she is compliant with her medication. SIGNIFICANT DATA chest x-ray done showed cardiomegaly and pulmonary vascular congestion and chronic atelectasis of the right middle lobe and COPD. CT scan of the chest done in August 2015 showed bilateral effusion and atelectasis small lung nodule emphysema mediastinal reactive lymphadenopathy four-chamber enlargement of the heart and multinodular goiter. ABG revealed significant hypercarbia with pH of 7.17/81/204 subsequently [id number] on 3 L White count upon admission was 7.4 hemoglobin 12.9 with no significant left shift Creatinine up to 1.2 baseline is 1.0 BUN is 41 was no significantly elevated anion gap and her bicarbonate upon admission was only 29. Her last thyroid function test was unremarkable Previous echocardiogram had revealed significantly reduced ejection fraction up to 40-45% with moderate to severe pulmonary hypertension Review of Systems Constitutional: Denies: chills, fever. Cardiovascular: Reports: edema, palpitations. Denies: chest pain, orthopena. Respiratory: Reports: cough, short of breath, sputum production. GI: Denies: abdominal pain, bloating, constipation, diarrhea, distention. Genitourinary: Denies: discharge, dysuria, frequency, hematuria. Musculoskeletal: Denies: back pain, gout, joint pain. Skin: Denies: change in skin color, change in hair/nails, dryness, erythema. Allergies/Medications Allergies: Coded Allergies: NO KNOWN ALLERGIES (11/20/12) Home Med List: Aspirin (Ecotrin) 81 MG TABLET.DR 1 TAB PO DAILY HEART HEALTH (Reported) Atorvastatin Calcium 40 MG TABLET 40 MG PO 1700 CHOLESTEROL Budesonide/Formoterol Fumarate (Symbicort 160-4.5 Mcg Inhaler) 10.2 GM HFA.AER.AD 2 PUF INH BID COPD Carvedilol 25 MG TABLET 1 TAB PO BID HTN (Reported) Furosemide 40 MG TABLET 1 TAB PO BID CHF Insulin Detemir (Levemir Flextouch) 100 UNIT/1 ML INSULN.PEN 25 U SC DAILY DIABETES (Reported) Insulin Lispro (Humalog Kwikpen U-100) 100 UNIT/1 ML INSULN.PEN 10 U SC AC DIABETES (Reported) Losartan Potassium 100 MG TABLET 1 TAB PO DAILY BLOOD PRESSURE (Reported) Tiotropium [place] (Spiriva) 18 MCG CAP.W.DEV 1 PUF INH DAILY COPD Past History Travel History Traveled to [place] past 21 day No Medical History Neurological: NONE EENT: NONE Cardiovascular: CHF, hypertension Respiratory: CHF Gastrointestinal: NONE Hepatic: NONE Renal: NONE Musculoskeletal: NONE Psychiatric: NONE Endocrine: IDDM Blood Disorders: NONE Cancer(s): NONE BEADWORKER/Reproductive: NONE Other Medical Hx: traumatic amputation of LLE Surgical History Surgical History: cholecystectomy Family History Relations & Conditions If Any: FATHER (Lung Cancer). MOTHER (Hypothyroidism Chronic Bronchitis). SISTER (Asthma from severe asthmatic attack). Psychosocial History Where Do You Live? Home Who Do You Live With? spouse Services at Home: None Primary Language: Telugu Smoking Status: Former Smoker ETOH Use: denies use Functional Ability ADLs Independent: dressing, eating, toileting, bathing. Ambulation: independent IADLs Independent: shopping, housework, finances, food prep, telephone, transportation , medication admin. Exam & Diagnostic Data Last 24 Hrs of Vital Signs/I&O Vital Signs Date Time Temp Pulse Resp B/P Pulse O2 O2 Flow FiO2 Ox Delivery Rate 05/31 1050 96 Nasal 2.0L Cannula 05/31 1015 98 Nasal 3.0L Cannula 05/31 0904 73 112/70 05/31 0904 73 112/70 05/31 0850 98.1 73 20 112/70 99 Nasal 3.0L Cannula 05/31 0000 Nasal 3.0L Cannula 05/30 2339 98.5 70 20 140/68 98 Nasal Cannula 05/30 2309 75 140/68 05/30 1919 94 Nasal 3.0L Cannula 05/30 1600 Nasal 3.0L Cannula 05/30 1426 Nasal 3.0L Cannula Intake & Output 05/31 1600 05/31 0800 05/31 0000 Intake Total 120 50 480 Output Total 400 650 Balance 120 -350 -170 Intake, Oral 120 50 480 Output, Urine 400 650 Patient 283 lb Weight Last 48 Hrs of Labs/Roberto: Laboratory Tests 05/31/16 0720: Anion Gap 7, Estimated GFR 45 L, BUN/Creatinine Ratio 34.2 H, Glucose 176 H, Calcium 8.4, Total Bilirubin 1.0, AST 39 H, ALT 71 H, Alkaline Phosphatase 120 , Total Protein 6.0 L, Albumin 3.0 L, Globulin 3.0, Albumin/Globulin Ratio 1.0 L, CBC w Diff MAN DIFF ORDERED, RBC 3.88 L, MCV 89.2, MCH 29.8, RDW 15.0 H, MPV 8.3, Gran % 53.1, Lymphocytes % 10.2 L, Monocytes % 36.3 H, Eosinophils % 0.1, Basophils % 0.3, Absolute Granulocytes 3.1, Segmented Neutrophils 46, Band Neutrophils 6 H, Absolute Lymphocytes 0.6 L, Lymphocytes 22, Monocytes 26 H, Absolute Monocytes 2.1 H, Absolute Eosinophils 0, Absolute Basophils 0, Platelet Estimate ADEQUATE, Normocytic RBCs VERIFIED, Hypochromic-Microcytic 1+, PUBS MCHC 33.4, Fld Total RBCs Counted 100 05/30/16 1553: Troponin I 0.02 05/30/16 1105: pH 7.38, pCO2 49 H, pO2 79 L, HCO3 28, ABG O2 Sat (Measured) 93.0 L, P-50 ( Temp Corrected) N, Carboxyhemoglobin 1.9, O2 Concentration % 3LPM, O2 Delivery Method NC, Phlebotomy Draw Site LEFT RADIAL 05/30/16 0905: Troponin I 0.02 05/30/16 0357: Anion Gap 9, Estimated GFR 50 L, BUN/Creatinine Ratio 29.1 H, Glucose 386 H, Calcium 8.5, Total Bilirubin 2.1 H, AST 98 H, ALT 78 H, Alkaline Phosphatase 170 H, Troponin I 0.02, Yhi-V-Allpinxdbpb Pept 3690 H, Total Protein 6.9, Albumin 3.4 L, Globulin 3.5, Albumin/Globulin Ratio 1.0 L, CBC w Diff NO MAN DIFF REQ, RBC 4.35, MCV 89.1, MCH 29.5, RDW 15.3 H, MPV 8.5, Gran % 78.5 H, Lymphocytes % 5.1 L, Monocytes % 15.3 H, Eosinophils % 1.0, Basophils % 0.1, Absolute Granulocytes 5.8, Absolute Lymphocytes 0.4 L, Absolute Monocytes 1.1 H, Absolute Eosinophils 0.1, Absolute Basophils 0, PUBS MCHC 33.2, Acetone Level NEGATIVE 05/30/16 0335: pH 7.17 *L, pCO2 81 *H, pO2 204 H, HCO3 29 H, ABG O2 Sat (Measured) 97.0, P-50 (Temp Corrected) Y, Carboxyhemoglobin 1.5, O2 Concentration % 100%, Temperature 99.9, O2 Delivery Method NRB, Phlebotomy Draw Site RIGHT RADIAL Assessment/Plan Impression/Plan: Physical Exam: General: WD/obese female in NAD; alert and oriented x 3 HEENT: NC/AT, PERRL, EOMI, clear oropharnx Neck: no JVD, no carotid bruit Heart: RRR with 2/6 systolic murmur Lungs: no crackles or wheezing ABdomen: soft, NT, +ve bowel sounds Extremities: left BKA, no edema Impression This is a lady with history of hypertension, insulin dependent diabetes, EF of 40% with previous systolic heart failure, significant COPD, previous below-knee amputation on the left side, ongoing on and off smoker, medical noncompliance, history suggestive of significant obesity hypoventilation syndrome now comes in with * Acute hypercarbic respiratory failure with rapid improvement with a short intervention with noninvasive ventilation. Etiology of this is probably related to recent infection she may have had as she did have exposure to people who were sick with cough wheezing and sputum production * Mild wheezing with symptoms and signs suggestive of mild acute COPD exacerbation * Right more than left heart failure with cor pulmonale from significant COPD and as well as left heart dysfunction * Morbid obesity with us evidence suggestive of obstructive sleep apnea * Chronic hypercarbia probably related to obesity hypoventilation syndrome and moderate COPD. We need to obtain baseline PCO2 later tonight * Hypertension hyperlipidemia insulin-dependent diabetes appears to be stable * Mild acute kidney injury with slightly worsening BUN and creatinine upon admission * Previous history of mediastinal lymphadenopathy probably related to heart failure needs follow-up CT scan in August of this year RECOMMENDATION * Obtain blood gas this evening at 8:00 * Place her on BiPAP if her PCO2 is more than 48 or if she is more SOMNOLENT * Prednisone 40 mg daily for 5 days * Gentle diuretics * Gqfxi-tyc-eiomn nebulizer therapy with ipratropium and albuterol every 6 hours * Continue her current medications * Hold Symbicort and Spiriva for now * Increase activity * Reduce oxygen to keep O2 sat around 92% * Sputum culture * Start Ceftin 250 by mouth twice a day as she has increasing sputum production and gram-positive cocci in his sputum * Obtain a flu swab Consult Acknowledgment - Thank you for your consult request.
[2016-05-31 16:13] VITALS: BP 162/70
--- NOTE | 2016-05-31 17:15 | PN- Cardiology ---
Subjective Subjective: The patient continues to complain of a cough productive of yellowish sputum. No recent chest pain. She continues to be short of breath. No palpitations. No diaphoresis. No nausea or vomiting. Objective Vital Signs and I&Os Vital Signs Date Time Temp Pulse Resp B/P Pulse O2 O2 Flow FiO2 Ox Delivery Rate 05/31 1613 100.6 81 18 162/70 97 05/31 1050 96 Nasal 2.0L Cannula 05/31 1015 98 Nasal 3.0L Cannula 05/31 0904 73 112/70 05/31 0904 73 112/70 05/31 0850 98.1 73 20 112/70 99 Nasal 3.0L Cannula 05/31 0000 Nasal 3.0L Cannula 05/30 2339 98.5 70 20 140/68 98 Nasal Cannula 05/30 2309 75 140/68 05/30 1919 94 Nasal 3.0L Cannula Intake & Output 05/31 1600 05/31 0800 / 0000 05/30 1600 05/30 0800 05/30 0000 Intake Total 460 50 480 480 0 Output Total 400 400 650 200 Balance 60 -350 -170 280 0 Intake, Oral 460 50 480 480 0 Number 0 1 Bowel Movements Output, Urine 400 400 650 200 Patient 283 lb 229 lb Weight Physical Exam: Gen: The patient is in no acute distress HEENT: Normal nose, ears, and oropharynx. Pupils equal bilaterally. Conjunctiva normal. Neck: Supple with no JVD, no masses, and no thyromegaly Lungs: Clear to auscultation with normal respiratory effort Heart: RRR, S1, S2, 2/6 systolic murmur. 1+ peripheral edema, 2+ pulses in the lower extremities bilaterally Abdomen: Soft, nontender, no masses. No hepatomegaly. No splenomegaly Extremities: No clubbing or cyanosis. Normal muscle strength in the upper and lower extremities Skin: Normal skin turgor with no skin ulcers or lesions noted. Current Medications: Current Medications Sig/Shannan Start time Last Medication Dose Route Stop Time Status Admin Albuterol Sulfate 3 ML Q6 05/31 1800 AC INH Albuterol Sulfate 3 ML Q4P PRN 05/30 1100 DC 05/31 INH 1014 Aspirin Buffered 81 MG DAILY 05/30 1000 AC 05/31 PO 0823 Atorvastatin Calcium 40 MG 1700 05/30 1700 DC 05/30 PO 1814 Budesonide/ 2 PUF BID 05/30 1000 DC 02/06 Formoterol Fumarate INH 0825 Carvedilol 25 MG BID 05/30 1000 AC 05/31 PO 0904 Cefuroxime Sodium 250 MG Q12 05/31 1452 AC PO Furosemide 40 MG 7:30 AM, & 4:30 PM 05/30 0730 AC 05/31 IV 1655 Heparin Sodium 5,000 UNIT Q8 05/30 0707 AC 05/31 (Porcine) SC 1240 Insulin Aspart 0 TIDAC/HS 05/30 2115 AC 05/31 SC 1705 Insulin Aspart 0 TIDAC 05/30 0800 DC 05/30 SC 1814 Insulin Detemir 25 UNITS DAILY 05/30 1000 AC 05/31 SC 0821 Ipratropium [place] 2.5 ML Q6 05/31 1450 AC INH Losartan Potassium 100 MG DAILY 05/30 1000 AC 05/31 PO 0904 Prednisone 40 MG DAILY 05/31 1500 AC PO 06/04 1001 Tiotropium [place] 1 PUF DAILY 05/30 1000 DC 05/31 INH 0824 Results Last 48 Hrs of Labs/Mics: Laboratory Tests 05/31/16 0720: Anion Gap 7, Estimated GFR 45 L, BUN/Creatinine Ratio 34.2 H, Glucose 176 H, Calcium 8.4, Total Bilirubin 1.0, AST 39 H, ALT 71 H, Alkaline Phosphatase 120 , Total Protein 6.0 L, Albumin 3.0 L, Globulin 3.0, Albumin/Globulin Ratio 1.0 L, CBC w Diff MAN DIFF ORDERED, RBC 3.88 L, MCV 89.2, MCH 29.8, RDW 15.0 H, MPV 8.3, Gran % 53.1, Lymphocytes % 10.2 L, Monocytes % 36.3 H, Eosinophils % 0.1, Basophils % 0.3, Absolute Granulocytes 3.1, Segmented Neutrophils 46, Band Neutrophils 6 H, Absolute Lymphocytes 0.6 L, Lymphocytes 22, Monocytes 26 H, Absolute Monocytes 2.1 H, Absolute Eosinophils 0, Absolute Basophils 0, Platelet Estimate ADEQUATE, Normocytic RBCs VERIFIED, Hypochromic-Microcytic 1+, PUBS MCHC 33.4, Fld Total RBCs Counted 100 05/30/16 1553: Troponin I 0.02 05/30/16 1105: pH 7.38, pCO2 49 H, pO2 79 L, HCO3 28, ABG O2 Sat (Measured) 93.0 L, P-50 ( Temp Corrected) N, Carboxyhemoglobin 1.9, O2 Concentration % 3LPM, O2 Delivery Method NC, Phlebotomy Draw Site LEFT RADIAL 05/30/16 0905: Troponin I 0.02 05/30/16 0357: Anion Gap 9, Estimated GFR 50 L, BUN/Creatinine Ratio 29.1 H, Glucose 386 H, Calcium 8.5, Total Bilirubin 2.1 H, AST 98 H, ALT 78 H, Alkaline Phosphatase 170 H, Troponin I 0.02, Cbj-W-Qjnhsldwqpl Pept 3690 H, Total Protein 6.9, Albumin 3.4 L, Globulin 3.5, Albumin/Globulin Ratio 1.0 L, CBC w Diff NO MAN DIFF REQ, RBC 4.35, MCV 89.1, MCH 29.5, RDW 15.3 H, MPV 8.5, Gran % 78.5 H, Lymphocytes % 5.1 L, Monocytes % 15.3 H, Eosinophils % 1.0, Basophils % 0.1, Absolute Granulocytes 5.8, Absolute Lymphocytes 0.4 L, Absolute Monocytes 1.1 H, Absolute Eosinophils 0.1, Absolute Basophils 0, PUBS MCHC 33.2, Acetone Level NEGATIVE 05/30/16 0335: pH 7.17 *L, pCO2 81 *H, pO2 204 H, HCO3 29 H, ABG O2 Sat (Measured) 97.0, P-50 (Temp Corrected) Y, Carboxyhemoglobin 1.5, O2 Concentration % 100%, Temperature 99.9, O2 Delivery Method NRB, Phlebotomy Draw Site RIGHT RADIAL Assessment/Plan Assessment/Plan Assessment: 1. Hypertension 2. COPD exacerbation 3. Acute on chronic systolic heart failure plan: * Antibiotics as per the medical service * Continue IV Lasix * Monitor input and output with daily weights * Check basic metabolic profile daily * Continue losartan and carvedilol Continue telemetry? Yes
[2016-06-01 00:04] VITALS: BP 170/90
[2016-06-01 08:00] VITALS: BP 146/70
--- NOTE | 2016-06-01 08:30 | PN- Housestaff ---
MILO GARSIA 06/01/16 0830: Subjective Follow-up For: Acute hypercarbic respiratory failure Subjective: Patient is seen and examined she continues to have coarse breath sounds. She required BiPAP last night her ABGs showed pCO2 of 60. Patient does not have leukocytosis however she had a fever of 100.8 yesterday around 5 PM Her sputum Gram stain is negative lower respiratory cultures are still pending Review of Systems Constitutional: Reports: see HPI. Objective Last 24 Hrs of Vital Signs/I&O Vital Signs Date Time Temp Pulse Resp B/P Pulse O2 O2 Flow FiO2 Ox Delivery Rate 06/01 1004 63 146/70 06/01 1003 63 146/70 06/01 0808 96 Nasal 2.0L Cannula 06/01 799 Nasal 2.0L Cannula 06/01 08 97.8 63 18 146/70 95 Nasal 2.0L Cannula 06/01 0040 63 93 06/01 0004 97.7 60 20 170/90 96 BIPAP 06/01 0000 95 BIPAP 05/31 2057 72 96 05/31 2056 98.4 05/31 2054 74 138/66 05/316 93 Nasal 2.0L Cannula 05/31 1759 100.8 05/31 1613 100.6 81 18 162/70 97 05/31 1600 94 Nasal 2.0L Cannula 05/31 1050 96 Nasal 2.0L Cannula Intake & Output 06/01 1600 06/01 0800 06/01 0000 Intake Total 300 370 Output Total 300 900 Balance 0 -530 Intake, IV 20 Intake, Oral 300 350 Number 0 Bowel Movements Output, Urine 300 900 Physical Exam General Appearance: Alert, Oriented X3, Cooperative, No Acute Distress Skin: No Rashes HEENT: Atraumatic Neck: Supple Lymphatic: Cervical nl Cardiovascular: Normal S1, Normal S2, No Murmurs Lungs: coarse breath sounds bilaterally. Rhonchi and crackles appreciated Abdomen: Normal Bowel Sounds, Soft, No Tenderness Neurological: Normal Speech, Normal Tone Current Medications: Current Medications Sig/Shannan Start time Last Medication Dose Route Stop Time Status Admin Acetaminophen 650 MG ONCE ONE 05/31 1715 DC / PO 05/31 1716 1759 Albuterol Sulfate 3 ML EVERY 4 HRS/AWAKE 05/31 1999 AC 06/01 INH 0800 Albuterol Sulfate 3 ML Q6 05/31 1800 DC INH Albuterol Sulfate 3 ML Q4P PRN 05/30 1100 DC 05/31 INH 1014 Aspirin Buffered 81 MG DAILY 05/30 1000 AC 06/01 PO 1003 Benzonatate 100 MG TID 06/01 1000 AC 06/01 PO 1003 Budesonide/ 2 PUF BID 05/30 1000 DC 05/31 Formoterol Fumarate INH 0825 Carvedilol 25 MG BID 05/30 1000 AC 06/01 PO 1003 Cefuroxime Sodium 250 MG Q12H 06/01 0600 AC 06/01 PO 0601 Cefuroxime Sodium 250 MG Q12 05/31 1452 DC 05/31 PO 1800 Furosemide 40 MG 7:30 AM, & 4:30 PM 05/30 0730 AC 06/01 IV 0833 Guaifenesin 600 MG Q12 06/01 1000 AC 06/01 PO 1003 Heparin Sodium 5,000 UNIT Q8 05/30 0707 AC 06/01 (Porcine) SC 0602 Insulin Aspart 0 TIDAC/HS 05/30 2115 AC 06/01 SC 0833 Insulin Detemir 25 UNITS DAILY 05/30 1000 AC 06/01 SC 1002 Ipratropium [place] 2.5 ML EVERY 4 HRS/AWAKE 05/31 2000 AC 06/01 INH 0800 Ipratropium [place] 2.5 ML Q6 05/31 1450 DC INH Losartan Potassium 100 MG DAILY 05/30 1000 AC 06/01 PO 1004 Prednisone 40 MG DAILY 05/31 1500 AC 06/01 PO 06/04 1001 1003 Tiotropium [place] 1 PUF DAILY 05/30 1000 DC 05/31 INH 0824 Last 24 Hrs of Lab/Roberto Results Last 24 Hrs of Labs/Mics: Laboratory Tests 06/01/16 0750: Anion Gap 6, Estimated GFR 56 L, BUN/Creatinine Ratio 46.0 H, Magnesium 1.8 06/01/16 0600: Virus Culture Pending 05/31/162034: pH 7.33 L, pCO2 60 *H, pO2 75 L, HCO3 31 H, ABG O2 Sat (Measured) 93.0 L, P- 50 (Temp Corrected) YES, Carboxyhemoglobin 0.9 L, O2 Concentration % 2L, Temperature 100.8 H, O2 Delivery Method NC, Phlebotomy Draw Site LEFT RADIAL 05/31/162034: pH Pending, pCO2 Pending, pO2 Pending, HCO3 Pending, ABG O2 Sat (Measured) Pending, P-50 (Temp Corrected) Pending, Carboxyhemoglobin Pending, O2 Concentration % Pending, Temperature Pending, O2 Delivery Method Pending, Phlebotomy Draw Site Pending Microbiology 06/01 831 BLOOD: Blood Culture - ORD 06/01 831 BLOOD: Blood Culture - ORD 05/31 1819 BLOOD: Blood Culture - RECD 05/31 1810 BLOOD: Blood Culture - RECD Assessment/Plan Assessment: Patient is 61-year-old female with past medical history of hypertension, diabetes, systolic heart failure came with the chief complaint of difficulty breathing. She had hypercarbic respiratory failure was initially started on BiPAP. Her ABGs improved. She was started on 40 IV Lasix daily, NovoLog sliding scale and her home medications including losartan and Coreg. Chest x-ray shows Hazy basilar opacities with bronchial wall thickening. This could be associated with a small airways process versus mild edema. Problem List Acute hypercarbic respiratory failure History of congestive heart failure with possible exacerbation Acute renal failure Hyperkalemia Abnormal LFTs and elevated bilirubin- possibly either due to medication or congestion of liver Plan Acute hypoxic/hypercarbic respiratory failure Patient sputum is negative for Gram stain however lower history culture is still pending Patient was evaluated by address change clerk yesterday, she was started on Ceftin. Repeat blood cultures are pending from yesterday Patient has no leukocytosis but bandemia of 6 Patient was started on BiPAP last night because her ABG showed PCo2 of 60 TRC nebs as needed, ipratropium every 6 hours round the clock along with albuterol Spiriva and Symbicort DC'd for now We'll continue to monitor Systolic congestive heart failure We'll continue IV Lasix 40 mg IV daily Patient was dilated by meat department manager yesterday, however her echocardiogram is still pending Patient is ruled out for ACS Continue her home meds of statin, carvedilol, aspirin Transaminitis Her LFTs had improved yesterday however this morning still pending Acute kidney injury Her creatinine has improved to 1. Will ensure adequate hydration Heart healthy diet DVT prophylaxis subcutaneous heparin Patient is DNR/DNI Problem List: 1. ?PNA Pain Ratin Pain Location: Generalized body pain Pain Goal: Pain 4 or less Pain Plan: Tylenol when necessary for pain Tomorrow's Labs & Rationales: CBC/BEP KATHY GRUBBS,DIPAK 06/01/16 1214: Attending MD Review Statement Attending Statement Attending MD Statement: examined this patient, discuss w/resident/PA/SOLE MOLDING MACHINE OPERATOR, agreed w/resident/PA/SOLE MOLDING MACHINE OPERATOR, reviewed EMR data (avail) Attending Assessment/Plan: Patient became hypercarbic overnight requiring BiPAP, Tmax 100.8. Still dyspneic but otherwise well. Will continue current management, follow pulmonary and cardiology recommendations
--- NOTE | 2016-06-01 12:10 | PN- Cardiology ---
Subjective Subjective: The patient notes that her cough is improving. Shortness of breath is somewhat better. She continues to have edema of her right lower extremity. No chest pain. No palpitations. No diaphoresis. Objective Vital Signs and I&Os Vital Signs Date Time Temp Pulse Resp B/P Pulse O2 O2 Flow FiO2 Ox Delivery Rate 06/01 1004 63 146/70 06/01 1003 63 146/70 06/01 0808 96 Nasal 2.0L Cannula 06/01 799 Nasal 2.0L Cannula 06/01 799 97.8 63 18 146/70 95 Nasal 2.0L Cannula 06/01 0040 63 93 06/01 0004 97.7 60 20 170/90 96 BIPAP 06/01 0000 95 BIPAP 05/31 2057 72 96 05/31 2056 98.4 05/31 2054 74 138/66 05/31 2035 93 Nasal 2.0L Cannula 05/31 1759 100.8 05/31 1613 100.6 81 18 162/70 97 05/31 1600 94 Nasal 2.0L Cannula Intake & Output 06/01 1600 06/01 0806/01 0000 05/31 1600 05/31 0000 Intake Total 300 370 460 50 480 Output Total 300 900 400 400 650 Balance 0 -530 60 -350 -170 Intake, IV 20 Intake, Oral 300 350 460 50 480 Number 0 0 Bowel Movements Output, Urine 300 900 400 400 650 Patient 283 lb Weight Physical Exam: Gen: The patient is in no acute distress HEENT: Normal nose, ears, and oropharynx. Pupils equal bilaterally. Conjunctiva normal. Neck: Supple with no JVD, no masses, and no thyromegaly Lungs: Clear to auscultation with normal respiratory effort Heart: RRR, S1, S2, 2/6 systolic murmur. 1+ peripheral edema, 2+ pulses in the lower extremities bilaterally Abdomen: Soft, nontender, no masses. No hepatomegaly. No splenomegaly Extremities: No clubbing or cyanosis. Normal muscle strength in the upper and lower extremities Skin: Normal skin turgor with no skin ulcers or lesions noted. Current Medications: Current Medications Sig/Shannan Start time Last Medication Dose Route Stop Time Status Admin Acetaminophen 650 MG ONCE ONE 05/31 1714 DC 05/31 PO 05/31 1715 175 Albuterol Sulfate 3 ML EVERY 4 HRS/AWAKE 05/31 1999 AC 06/01 INH 0800 Albuterol Sulfate 3 ML Q6 05/31 1800 DC INH Albuterol Sulfate 3 ML Q4P PRN 05/30 1100 DC 05/31 INH 1014 Aspirin Buffered 81 MG DAILY 05/30 1000 AC 06/01 PO 1003 Benzonatate 100 MG TID 06/01 1000 AC 06/01 PO 1003 Budesonide/ 2 PUF BID 05/30 1000 DC 05/31 Formoterol Fumarate INH 0825 Carvedilol 25 MG BID 05/30 1000 AC 06/01 PO 1003 Cefuroxime Sodium 250 MG Q12H 06/01 0600 AC 06/01 PO 0601 Cefuroxime Sodium 250 MG Q12 05/31 1452 DC 05/31 PO 1800 Furosemide 40 MG 7:30 AM, & 4:30 PM 05/30 07 AC 06/01 IV 0833 Guaifenesin 600 MG Q12 06/01 1000 AC 06/01 PO 1003 Heparin Sodium 5,000 UNIT Q8 05/30 0707 AC 06/01 (Porcine) SC 0602 Insulin Aspart 0 TIDAC/HS 05/30 2115 AC 06/01 SC 0833 Insulin Detemir 25 UNITS DAILY 05/30 1000 AC 06/01 SC 1002 Ipratropium [place] 2.5 ML EVERY 4 HRS/AWAKE 05/31 1999 AC 06/01 INH 0800 Ipratropium [place] 2.5 ML Q6 05/31 1450 DC INH Losartan Potassium 100 MG DAILY 05/30 1000 AC 06/01 PO 1004 Prednisone 40 MG DAILY 05/31 1500 AC 06/01 PO 06/04 1001 1003 Tiotropium [place] 1 PUF DAILY 05/30 1000 DC 05/31 INH 0824 Results Last 48 Hrs of Labs/Mics: Laboratory Tests 06/01/16 0750: Anion Gap 6, Estimated GFR 56 L, BUN/Creatinine Ratio 46.0 H, Magnesium 1.8, Total Bilirubin 0.6, Direct Bilirubin 0.4, AST 26, ALT 58 H, Alkaline Phosphatase 120, Total Protein 6.2 L, Albumin 3.1 L 06/01/16 06: Virus Culture Pending 05/31/162034: pH 7.33 L, pCO2 60 *H, pO2 75 L, HCO3 31 H, ABG O2 Sat (Measured) 93.0 L, P- 50 (Temp Corrected) YES, Carboxyhemoglobin 0.9 L, O2 Concentration % 2L, Temperature 100.8 H, O2 Delivery Method NC, Phlebotomy Draw Site LEFT RADIAL 05/31/162034: pH Pending, pCO2 Pending, pO2 Pending, HCO3 Pending, ABG O2 Sat (Measured) Pending, P-50 (Temp Corrected) Pending, Carboxyhemoglobin Pending, O2 Concentration % Pending, Temperature Pending, O2 Delivery Method Pending, Phlebotomy Draw Site Pending 05/31/16 0720: Anion Gap 7, Estimated GFR 45 L, BUN/Creatinine Ratio 34.2 H, Glucose 176 H, Calcium 8.4, Total Bilirubin 1.0, AST 39 H, ALT 71 H, Alkaline Phosphatase 120 , Total Protein 6.0 L, Albumin 3.0 L, Globulin 3.0, Albumin/Globulin Ratio 1.0 L, CBC w Diff MAN DIFF ORDERED, RBC 3.88 L, MCV 89.2, MCH 29.8, RDW 15.0 H, MPV 8.3, Gran % 53.1, Lymphocytes % 10.2 L, Monocytes % 36.3 H, Eosinophils % 0.1, Basophils % 0.3, Absolute Granulocytes 3.1, Segmented Neutrophils 46, Band Neutrophils 6 H, Absolute Lymphocytes 0.6 L, Lymphocytes 22, Monocytes 26 H, Absolute Monocytes 2.1 H, Absolute Eosinophils 0, Absolute Basophils 0, Platelet Estimate ADEQUATE, Normocytic RBCs VERIFIED, Hypochromic-Microcytic 1+, PUBS MCHC 33.4, Fld Total RBCs Counted 100 05/30/16 1553: Troponin I 0.02 Assessment/Plan Assessment/Plan Assessment: 1. Hypertension 2. COPD exacerbation 3. Acute on chronic systolic heart failure Plan: * Antibiotics as per the medical service * Continue IV Lasix * Monitor input and output with daily weights * Check basic metabolic profile daily * Continue losartan and carvedilol Continue telemetry? Yes
--- NOTE | 2016-06-01 12:29 | PN- Pulmonary ---
Subjective HPI/Critical Care Issues: Much improved afebrile Influenza positive Objective Current Medications: Current Medications Sig/Shannan Start time Last Medication Dose Route Stop Time Status Admin Acetaminophen 650 MG ONCE ONE 05/31 1715 DC 05/31 PO 05/31 1716 1759 Albuterol Sulfate 3 ML EVERY 4 HRS/AWAKE 05/31 1999 AC 06/01 INH 0800 Albuterol Sulfate 3 ML Q6 05/31 1800 DC INH Albuterol Sulfate 3 ML Q4P PRN 05/30 1100 DC 05/31 INH 1014 Aspirin Buffered 81 MG DAILY 05/30 1000 AC 06/01 PO 1003 Benzonatate 100 MG TID 06/01 1000 AC 06/01 PO 1003 Budesonide/ 2 PUF BID 05/30 1000 DC 05/31 Formoterol Fumarate INH 0825 Carvedilol 25 MG BID 05/30 1000 AC 06/01 PO 1003 Cefuroxime Sodium 250 MG Q12H 06/01 0600 AC 06/01 PO 0601 Cefuroxime Sodium 250 MG Q12 05/31 1452 DC 05/31 PO 1800 Furosemide 40 MG 7:30 AM, & 4:30 PM 05/30 0730 AC 06/01 IV 0833 Guaifenesin 600 MG Q12 06/01 1000 AC 06/01 PO 1003 Heparin Sodium 5,000 UNIT Q8 05/30 0707 AC 06/01 (Porcine) SC 0602 Insulin Aspart 0 TIDAC/HS 05/30 2115 AC 06/01 SC 0833 Insulin Detemir 25 UNITS DAILY 05/30 1000 AC 06/01 SC 1002 Ipratropium [place] 2.5 ML EVERY 4 HRS/AWAKE 05/31 2000 AC 06/01 INH 0800 Ipratropium [place] 2.5 ML Q6 05/31 1450 DC INH Losartan Potassium 100 MG DAILY 05/30 1000 AC 06/01 PO 1004 Prednisone 40 MG DAILY 05/31 1500 AC 06/01 PO 06/04 1001 1003 Tiotropium [place] 1 PUF DAILY 05/30 1000 DC 05/31 INH 0824 Vital Signs & I&O Last 24 Hrs of Vitals and I&O: Vital Signs Date Time Temp Pulse Resp B/P Pulse O2 O2 Flow FiO2 Ox Delivery Rate 06/01 1004 63 146/70 06/01 1003 63 146/70 06/01 0808 96 Nasal 2.0L Cannula 06/01 0800 Nasal 2.0L Cannula 06/01 799 97.8 63 18 146/70 95 Nasal 2.0L Cannula 06/01 0040 63 93 06/01 0004 97.7 60 20 170/90 96 BIPAP 06/01 0000 95 BIPAP 05/31 2057 72 96 05/31 2056 98.4 05/31 2054 74 138/66 05/31 2035 93 Nasal 2.0L Cannula 05/31 1758 100.8 05/31 1612 100.6 81 18 162/70 97 05/31 1599 94 Nasal 2.0L Cannula Intake & Output 06/01 0000 Intake Total 300 370 Output Total 300 900 Balance 0 -530 Intake, IV 20 Intake, Oral 300 350 Number 0 Bowel Movements Output, Urine 300 900 Laboratory Tests 06/01 06/01 05/31 05/31 0750 0600 2034 2034 Blood Gas pH (7.35 - 7.45 PH) 7.33 L Pending pCO2 (35 - 45 TORR) 60 *H Pending pO2 (80 - 100 TORR) 75 L Pending HCO3 (21 - 28 MEQ/L) 31 H Pending ABG O2 Sat (Measured) (>96.0 %) 93.0 L Pending P-50 (Temp Corrected) YES Pending Carboxyhemoglobin (1.5 - 5.0 %) 0.9 L Pending O2 Concentration % 2L Pending Temperature (97.0 - 100.0 FARH) 100.8 H Pending O2 Delivery Method NC Pending Chemistry Sodium (137 - 145 mmol/L) 141 Potassium (3.5 - 5.1 mmol/L) 5.0 Chloride (98 - 107 mmol/L) 101 Carbon Dioxide (22 - 30 mmol/L) 34 H Anion Gap (5 - 16) 6 BUN (7 - 17 mg/dL) 46 H Creatinine (0.5 - 1.0 mg/dL) 1.0 Estimated GFR (>60 ml/min) 56 L BUN/Creatinine Ratio (7 - 25 %) 46.0 H Magnesium (1.6 - 2.3 mg/dL) 1.8 Total Bilirubin (0.2 - 1.3 mg/dL) 0.6 Direct Bilirubin (< 0.4 mg/dL) 0.4 AST (14 - 36 U/L) 26 ALT (9 - 52 U/L) 58 H Alkaline Phosphatase (<127 U/L) 120 Total Protein (6.3 - 8.2 g/dL) 6.2 L Albumin (3.5 - 5.0 g/dL) 3.1 L Miscellaneous Phlebotomy Draw Site LEFT RADIAL Pending Serology Virus Culture Pending 05/31 05/30 0724 6313 Chemistry Sodium (137 - 145 mmol/L) 141 Potassium (3.5 - 5.1 mmol/L) 4.4 Chloride (98 - 107 mmol/L) 103 Carbon Dioxide (22 - 30 mmol/L) 31 H Anion Gap (5 - 16) 7 BUN (7 - 17 mg/dL) 41 H Creatinine (0.5 - 1.0 mg/dL) 1.2 H Estimated GFR (>60 ml/min) 45 L BUN/Creatinine Ratio (7 - 25 %) 34.2 H Glucose (65 - 99 mg/dL) 176 H Calcium (8.4 - 10.2 mg/dL) 8.4 Total Bilirubin (0.2 - 1.3 mg/dL) 1.0 AST (14 - 36 U/L) 39 H ALT (9 - 52 U/L) 71 H Alkaline Phosphatase (<127 U/L) 120 Troponin I (< 0.11 ng/ml) 0.02 Total Protein (6.3 - 8.2 g/dL) 6.0 L Albumin (3.5 - 5.0 g/dL) 3.0 L Globulin (1.9 - 4.2 gm/dL) 3.0 Albumin/Globulin Ratio (1.1 - 2.2 %) 1.0 L Hematology CBC w Diff MAN DIFF ORDERED WBC (4.8 - 10.8 /CUMM) 5.8 RBC (4.20 - 5.40 /CUMM) 3.88 L Hgb (12.0 - 16.0 G/DL) 11.6 L Hct (37 - 47 %) 34.6 L MCV (81.0 - 99.0 FL) 89.2 MCH (27.0 - 31.0 PG) 29.8 RDW (11.5 - 14.5 %) 15.0 H Plt Count (130 - 400 /CUMM) 185 MPV (7.4 - 10.4 FL) 8.3 Gran % (42.2 - 75.2 %) 53.1 Lymphocytes % (20.5 - 51.1 %) 10.2 L Monocytes % (1.7 - 9.3 %) 36.3 H Eosinophils % (0 - 5 %) 0.1 Basophils % (0.0 - 2.0 %) 0.3 Absolute Granulocytes (1.4 - 6.5 /CUMM) 3.1 Segmented Neutrophils (42.2 - 75.2 %) 46 Band Neutrophils (0.0 - 5.0 %) 6 H Absolute Lymphocytes (1.2 - 3.4 /CUMM) 0.6 L Lymphocytes (20.5 - 51.1 %) 22 Monocytes (1.7 - 9.3 %) 26 H Absolute Monocytes (0.10 - 0.60 /CUMM) 2.1 H Absolute Eosinophils (0.0 - 0.7 /CUMM) 0 Absolute Basophils (0.0 - 0.2 /CUMM) 0 Platelet Estimate (ADEQUATE) ADEQUATE Normocytic RBCs VERIFIED Hypochromic-Microcytic 1+ PUBS MCHC (33.0 - 37.0 G/DL) 33.4 Other Body Source Fld Total RBCs Counted (%) 100 Microbiology Date/Time Procedure - Status Source Growth 06/01 0832 Blood Culture - COLB BLOOD 06/01 0832 Blood Culture - COLB BLOOD 05/31 1820 Blood Culture - RES BLOOD 05/31 1811 Blood Culture - RES BLOOD 05/30 2217 Respiratory Culture - RES LOWER RESP 05/30 2217 Gram Stain - RES LOWER RESP 05/30 0402 Blood Culture - RES BLOOD 05/30 0357 Blood Culture - RES BLOOD Impression/Plan Impression/Plan Impression/Plan: Physical Exam: General: WD/obese female in NAD; alert and oriented x 3 HEENT: NC/AT, PERRL, EOMI, clear oropharnx Neck: no JVD, no carotid bruit Heart: RRR with 2/6 systolic murmur Lungs: no crackles or wheezing ABdomen: soft, NT, +ve bowel sounds Extremities: left BKA, no edema Impression This is a lady with history of hypertension, insulin dependent diabetes, EF of 40% with previous systolic heart failure, significant COPD, previous below-knee amputation on the left side, ongoing on and off smoker, medical noncompliance, history suggestive of significant obesity hypoventilation syndrome now comes in with * Resolved Acute hypercarbic respiratory failure with rapid improvement. Pt now has influenza * Mild acute COPD exacerbation * Right more than left heart failure with cor pulmonale from significant COPD and as well as left heart dysfunction * Morbid obesity with us evidence suggestive of obstructive sleep apnea * Chronic hypercarbia probably related to obesity hypoventilation syndrome and moderate COPD. * Hypertension hyperlipidemia insulin-dependent diabetes appears to be stable * Mild acute kidney injury with slightly worsening BUN and creatinine upon admission * Previous history of mediastinal lymphadenopathy probably related to heart failure needs follow-up CT scan in August of this year RECOMMENDATION * Reduce steroids to 20 mg for three more days and stop * Tamiflu * [id number] nebulizer therapy with ipratropium and albuterol every 6 hours * Continue her current medications * Hold Symbicort and Spiriva for now and resume upon dc * Increase activity * Reduce oxygen to keep O2 sat around 92% * Dc ceftin in am if her cultures are neg by am * If stable keep off bipap tonight and observe * Can change to po lasix in am *
[2016-06-01 15:30] VITALS: BP 167/77
[2016-06-02 00:02] VITALS: BP 166/84
--- NOTE | 2016-06-02 07:27 | PN- Housestaff ---
MILO GARSIA 06/02/16 0726: Subjective Follow-up For: Influenza Acute hypercarbic respiratory failure Subjective: Patient seen and examined. Seems to be doing well. Cough has improved after mucinex and tesslon perles. Patient's rapid flu came out positive for influenza yesterday and she was started on tamiflu. Her lower resp Culture has been negative. Review of Systems Constitutional: Reports: see HPI. Objective Last 24 Hrs of Vital Signs/I&O Vital Signs Date Time Temp Pulse Resp B/P Pulse O2 O2 Flow FiO2 Ox Delivery Rate 06/02 0815 124/80 06/02 0915 124/80 06/02 0852 94 Nasal 2.0L Cannula 06/02 08 98.1 72 18 124/80 97 Nasal 2.0L Cannula 06/02 0325 96 Nasal 2.0L Cannula 06/02 0318 77 96 06/02 0002 98.3 78 16 166/84 99 Nasal 2.0L Cannula 06/02 0000 Nasal 2.0L Cannula 06/01 2227 79 172/84 06/01 2020 90 Nasal 2.0L Cannula 06/01 1600 Nasal 2.0L Cannula 06/01 1530 98.4 71 20 167/77 93 Nasal 2.0L Cannula Intake & Output 06/02 1600 06/02 0800 06/02 0000 Intake Total 100 450 Output Total 300 Balance 100 150 Intake, Oral 100 450 Output, Urine 300 Patient 128.82 kg Weight Physical Exam General Appearance: Alert, Oriented X3, Cooperative, Mild Distress Skin: No Rashes, No Breakdown HEENT: Atraumatic Neck: Supple Cardiovascular: Normal S1, Normal S2 Lungs: bilateral coarse breath sounds Neurological: Normal Speech, Normal Tone Current Medications: Current Medications Sig/Shannan Start time Last Medication Dose Route Stop Time Status Admin Albuterol Sulfate 3 ML Q6 06/01 1800 AC 06/02 INH 0848 Albuterol Sulfate 3 ML EVERY 4 HRS/AWAKE 05/31 2000 DC 06/01 INH 0800 Aspirin Buffered 81 MG DAILY 05/30 1000 AC 06/02 PO 0915 Benzonatate 100 MG TID 06/01 1000 AC 06/02 PO 0915 Carvedilol 25 MG BID 05/30 1000 AC 06/02 PO 0915 Cefuroxime Sodium 250 MG Q12H 06/01 0600 AC 06/02 PO 0600 Furosemide 40 MG 7:30 AM, & 4:30 PM 06/02 1630 AC PO Furosemide 40 MG 7:30 AM, & 4:30 PM 05/30 0730 DC 06/02 IV 0659 Guaifenesin 600 MG Q12 06/01 1000 AC 06/02 PO 0915 Heparin Sodium 5,000 UNIT Q8 05/30 0707 AC 06/02 (Porcine) SC 0600 Insulin Aspart 0 TIDAC/HS 05/30 2115 AC 06/02 SC 0916 Insulin Detemir 25 UNITS DAILY 05/30 1000 AC 06/02 SC 0916 Ipratropium [place] 2.5 ML Q6 06/01 1800 AC 06/02 INH 0848 Ipratropium [place] 2.5 ML EVERY 4 HRS/AWAKE 05/31 2000 DC 06/01 INH 0800 Losartan Potassium 100 MG DAILY 05/30 1000 AC 06/02 PO 0915 Oseltamivir Phosphate 75 MG BID 06/01 1259 AC 06/02 PO 06/05 1258 0915 Patient Medication 1 UNIT ONE NR 06/01 1345 [place] Teaching ED 06/01 1945 Patient Medication 1 ED .STK-MED ONE 06/01 1340 [place] Teaching ED 06/01 1341 Prednisone 20 MG DAILY 06/02 1000 AC 06/02 PO 06/04 1001 0915 Prednisone 40 MG DAILY 05/31 1500 DC 06/01 PO 06/04 1001 1003 Last 24 Hrs of Lab/Roberto Results Last 24 Hrs of Labs/Mics: Laboratory Tests 06/02/16 0625: CBC w Diff MAN DIFF ORDERED, RBC 3.98 L, MCV 88.7, MCH 29.8, RDW 15.2 H, MPV 8.3, Gran % 50.8, Lymphocytes % 19.4 L, Monocytes % 29.3 H, Eosinophils % 0.1, Basophils % 0.4, Absolute Granulocytes 3.0, Absolute Lymphocytes 1.1 L, Absolute Monocytes 1.7 H, Absolute Eosinophils 0, Absolute Basophils 0, Platelet Estimate ADEQUATE, Normocytic RBCs VERIFIED, Normochromic RBCs VERIFIED , PUBS MCHC 33.6 Assessment/Plan Assessment: Patient is 61-year-old female with past medical history of hypertension, diabetes, systolic heart failure came with the chief complaint of difficulty breathing. She had hypercarbic respiratory failure was initially started on BiPAP. Her ABGs improved. She was started on 40 IV Lasix daily, NovoLog sliding scale and her home medications including losartan and Coreg. Chest x-ray shows Hazy basilar opacities with bronchial wall thickening. This could be associated with a small airways process versus mild edema. Problem List Acute hypercarbic respiratory failure History of congestive heart failure with possible exacerbation Acute renal failure Hyperkalemia Abnormal LFTs and elevated bilirubin- possibly either due to medication or congestion of liver Plan Acute hypoxic/hypercarbic respiratory failure Rapid flu from came out to be positive, patient was started on Tamiflu for a total of 5 days 75 mg twice a day Patient sputum is negative for Gram stain, her lower respiratory culture is negative. Will DC her antibiotics today Pulmonary consult service on board Blood cultures have been negative No leukocytosis afebrile Patient probably has URBAN, would need outpatient sleep study TRC nebs as needed, ipratropium every 6 hours round the clock along with albuterol Spiriva and Symbicort will be restarted upon discharge Systolic congestive heart failure IV Lasix wish to her home dose of 40 by mouth twice a day Cardiology consult service on board Her echocardiogram is still pending Patient is ruled out for ACS Continue her home meds of statin, carvedilol, aspirin Transaminitis Her LFTs have improved Acute kidney injury Her creatinine is 1. Will ensure adequate hydration Heart healthy diet DVT prophylaxis subcutaneous heparin Patient is DNR/DNI Problem List: 1. COPD Pain Ratin Pain Location: Generalized Pain Goal: Pain 4 or less Pain Plan: Tylenol for pain when necessary Tomorrow's Labs & Rationales: none DIPAK CHAVEZ MD 06/02/16 1206: Attending MD Review Statement Attending Statement Attending MD Statement: examined this patient, discuss w/resident/PA/SENIOR GEOTECHNICAL ENGINEER, agreed w/resident/PA/SENIOR GEOTECHNICAL ENGINEER, reviewed EMR data (avail) Attending Assessment/Plan: Influenza positive, started on Tamiflu. patient is much improved today and back to her baseline. Can be discharged home on Tamiflu and rapid Prednisone taper, continue home medications, follow pulmonary recommendations and outpatient follow up with Dr. Paul.
[2016-06-02] MEDS ORDERED: PREDNISONE10 M2 PO (07:53)
[2016-06-02 08:00] VITALS: BP 124/80
[2016-06-02 08:01] LABS: ABSOLUTE BASOPHIL COUNT 0 /CUMM (0.0-0.2); ABSOLUTE EOSINOPHIL COUNT 0 /CUMM (0.0-0.7); ABSOLUTE LYMPH COUNT 1.1 /CUMM (1.2-3.4); ABSOLUTE MONOCYTE COUNT 1.7 /CUMM (0.10-0.60); BASOPHIL % 0.4 % (0.0-2.0); EOSINOPHIL % 0.1 % (0-5); GRANULOCYTE % 50.8 % (42.2-75.2); HEMATOCRIT 35.3 % (37-47); MEAN CORPUSCULAR HGB 29.8 PG (27.0-31.0); MEAN CORPUSCULAR HGB CONC 33.6 G/DL (33.0-37.0); MEAN CORPUSCULAR VOLUME 88.7 FL (81.0-99.0); MEAN PLATELET VOLUME 8.3 FL (7.4-10.4); PLATELET COUNT 191 /CUMM (130-400); RBC DISTRIBUTION WIDTH 15.2 % (11.5-14.5); RED BLOOD CELL CT 3.98 /CUMM (4.20-5.40); WHITE BLOOD CELL COUNT 5.9 /CUMM (4.8-10.8)
[2016-06-02] MEDS ORDERED: TAMIFLU75 M1 PO ×2 (08:54→10:02)
[2016-06-02 09:15] VITALS: BP 124/80
[2016-06-02] MEDS ORDERED: MUCINEX1200 M1 PO (09:52)
[2016-06-02] MEDS ORDERED: TESSALON PERLE100 M1 PO (09:52)
--- NOTE | 2016-06-02 10:02 | NUR ---
Physical Therapy - Consult received and chart reviewed, pt is mobilizing independently and plan is for HSC. No skilled PT needs identified, will not follow.
--- NOTE | 2016-06-02 12:27 | PN- Cardiology ---
Subjective Subjective: The patient seems to be doing well today. Sitting at the bedside. Respiratory status stable. Out of bed without issues. Objective Vital Signs and I&Os Vital Signs Date Time Temp Pulse Resp B/P Pulse O2 O2 Flow FiO2 Ox Delivery Rate 06/02 914 124/80 06/02 0815 124/80 06/02 851 94 Nasal 2.0L Cannula 06/02 799 95 Nasal 2.0L Cannula 06/02 799 98.1 72 18 124/80 97 Nasal 2.0L Cannula 06/02 0325 96 Nasal 2.0L Cannula 06/02 0318 77 96 06/02 0002 98.3 78 16 166/84 99 Nasal 2.0L Cannula 06/02 0000 Nasal 2.0L Cannula 06/01 2227 79 172/84 06/01 2019 90 Nasal 2.0L Cannula 06/01 1600 Nasal 2.0L Cannula 06/01 1530 98.4 71 20 167/77 93 Nasal 2.0L Cannula Intake & Output 06/02 0000 06/01 1600 06/01 0000 Intake Total 100 450 200 300 370 Output Total 300 550 300 900 Balance 100 150 -350 0 -530 Intake, IV 20 Intake, Oral 100 450 200 300 350 Number 0 Bowel Movements Output, Urine 300 550 300 900 Patient 284 lb 283 lb Weight Physical Exam: General: The patient is in no acute distress, sitting at the bedside HEENT: Normal Neck: Supple with no JVD, no masses, and no thyromegaly, carotids normal bilaterally Lungs: Clear to auscultation Heart: RRR, S1, S2, 2/6 systolic murmur. Abdomen: Soft, nontender, no masses. No hepatomegaly. No splenomegaly Extremities: No clubbing or cyanosis. Mild edema Skin: Normal Current Medications: Current Medications Sig/Shannan Start time Last Medication Dose Route Stop Time Status Admin Albuterol Sulfate 3 ML TID 06/02 1600 AC INH Albuterol Sulfate 3 ML Q6 06/01 1800 DC 06/02 INH 0848 Albuterol Sulfate 3 ML EVERY 4 HRS/AWAKE 05/31 2000 DC 06/01 INH 0800 Aspirin Buffered 81 MG DAILY 05/30 1000 AC 06/02 PO 0915 Benzonatate 100 MG TID 06/01 1000 AC 06/02 PO 0915 Carvedilol 25 MG BID 05/30 1000 AC 06/02 PO 0915 Cefuroxime Sodium 250 MG Q12H 06/01 0600 AC 06/02 PO 0600 Furosemide 40 MG 7:30 AM, & 4:30 PM 06/02 1630 AC PO Furosemide 40 MG 7:30 AM, & 4:30 PM 05/30 0730 DC 06/02 IV 0659 Guaifenesin 600 MG Q12 06/01 1000 AC 06/02 PO 0915 Heparin Sodium 5,000 UNIT Q8 05/30 0707 AC 06/02 (Porcine) SC 0600 Insulin Aspart 0 TIDAC/HS 05/30 2115 AC 06/02 SC 0916 Insulin Detemir 25 UNITS DAILY 05/30 1000 AC 06/02 SC 0916 Ipratropium [place] 2.5 ML TID 06/02 1600 AC INH Ipratropium [place] 2.5 ML Q6 06/01 1800 DC 06/02 INH 0848 Ipratropium [place] 2.5 ML EVERY 4 HRS/AWAKE 05/31 2000 DC 06/01 INH 0800 Losartan Potassium 100 MG DAILY 05/30 1000 AC 06/02 PO 0915 Oseltamivir Phosphate 75 MG BID 06/01 1259 AC 06/02 PO 06/05 1258 0915 Patient Medication 1 UNIT ONE NR 06/01 1345 [place] Teaching ED 06/01 1945 Patient Medication 1 ED .STK-MED ONE 06/01 1340 [place] Teaching ED 06/01 1341 Prednisone 20 MG DAILY 06/02 1000 AC 06/02 PO 06/04 1001 0915 Prednisone 40 MG DAILY 05/31 1500 DC 06/01 PO 06/04 1001 1003 Results Last 48 Hrs of Labs/Mics: Laboratory Tests 06/02/16 0625: CBC w Diff MAN DIFF ORDERED, RBC 3.98 L, MCV 88.7, MCH 29.8, RDW 15.2 H, MPV 8.3, Gran % 50.8, Lymphocytes % 19.4 L, Monocytes % 29.3 H, Eosinophils % 0.1, Basophils % 0.4, Absolute Granulocytes 3.0, Absolute Lymphocytes 1.1 L, Absolute Monocytes 1.7 H, Absolute Eosinophils 0, Absolute Basophils 0, Platelet Estimate ADEQUATE, Normocytic RBCs VERIFIED, Normochromic RBCs VERIFIED , PUBS MCHC 33.6 06/01/16 0750: Anion Gap 6, Estimated GFR 56 L, BUN/Creatinine Ratio 46.0 H, Magnesium 1.8, Total Bilirubin 0.6, Direct Bilirubin 0.4, AST 26, ALT 58 H, Alkaline Phosphatase 120, Total Protein 6.2 L, Albumin 3.1 L 06/01/16 0600: Virus Culture Pending 05/31/162034: pH 7.33 L, pCO2 60 *H, pO2 75 L, HCO3 31 H, ABG O2 Sat (Measured) 93.0 L, P- 50 (Temp Corrected) YES, Carboxyhemoglobin 0.9 L, O2 Concentration % 2L, Temperature 100.8 H, O2 Delivery Method NC, Phlebotomy Draw Site LEFT RADIAL 05/31/162034: pH Cancelled, pCO2 Cancelled, pO2 Cancelled, HCO3 Cancelled, ABG O2 Sat ( Measured) Cancelled, P-50 (Temp Corrected) Cancelled, Carboxyhemoglobin Cancelled, O2 Concentration % Cancelled, Temperature Cancelled, O2 Delivery Method Cancelled, Phlebotomy Draw Site Cancelled Assessment/Plan Assessment/Plan Assessment: 1. Hypertension 2. COPD exacerbation 3. Acute on chronic systolic heart failure Medications: -Continue current medications -Continue oral Lasix -Continue to monitor her intakes, outputs, and daily weights while in hospital -Out of bed as tolerated with ambulatory monitoring of oxygen, etc. -Echocardiogram pending. -Discharge planning Continue telemetry? Yes
--- NOTE | 2016-06-02 14:11 | PN- Pulmonary ---
Subjective HPI/Critical Care Issues: Doing well afebrile Did not use bipap More awake Ready to go home Objective Current Medications: Current Medications Sig/Shannan Start time Last Medication Dose Route Stop Time Status Admin Albuterol Sulfate 3 ML TID 06/02 1600 AC 06/02 INH 1258 Albuterol Sulfate 3 ML Q6 06/01 1800 DC 02 INH 0848 Aspirin Buffered 81 MG DAILY 05/30 1000 AC 06/02 PO 0915 Benzonatate 100 MG TID 06/01 1000 AC 06/02 PO 0915 Carvedilol 25 MG BID 05/30 1000 AC 06/02 PO 0915 Cefuroxime Sodium 250 MG Q12H 06/01 0600 AC 06/02 PO 0600 Furosemide 40 MG 7:30 AM, & 4:30 PM 06/02 1630 AC PO Furosemide 40 MG 7:30 AM, & 4:30 PM 05/30 0730 DC 06/02 IV 0659 Guaifenesin 600 MG Q12 06/01 1000 AC 06/02 PO 0915 Heparin Sodium 5,000 UNIT Q8 05/30 0707 AC 06/02 (Porcine) SC 0600 Insulin Aspart 0 TIDAC/HS 05/30 2115 AC 06/02 SC 0916 Insulin Detemir 25 UNITS DAILY 05/30 1000 AC 06/02 SC 0916 Ipratropium [place] 2.5 ML TID 06/02 1600 AC 06/02 INH 1257 Ipratropium [place] 2.5 ML Q6 06/01 1800 DC 06/02 INH 0848 Losartan Potassium 100 MG DAILY 05/30 1000 AC 06/02 PO 0915 Oseltamivir Phosphate 75 MG BID 06/01 1259 AC 06/02 PO 06/05 1258 0915 Patient Medication 1 UNIT ONE NR 06/01 1345 DC Teaching ED 06/01 1945 Prednisone 20 MG DAILY 06/02 1000 AC 06/02 PO 06/04 1001 0915 Vital Signs & I&O Last 24 Hrs of Vitals and I&O: Vital Signs Date Time Temp Pulse Resp B/P Pulse O2 O2 Flow FiO2 Ox Delivery Rate 06/02 914 124/80 06/02 914 124/80 06/02 08 94 Nasal 2.0L Cannula 06/02 799 95 Nasal 2.0L Cannula 06/02 799 98.1 72 18 124/80 97 Nasal 2.0L Cannula 06/02 0325 96 Nasal 2.0L Cannula 06/02 0318 77 96 06/02 0002 98.3 78 16 166/84 99 Nasal 2.0L Cannula 06/02 0000 Nasal 2.0L Cannula 06/01 2227 79 172/84 06/01 2019 90 Nasal 2.0L Cannula 06/01 1600 Nasal 2.0L Cannula 06/01 1530 98.4 71 20 167/77 93 Nasal 2.0L Cannula Intake & Output 06/02 1600 06/02 0800 06/02 0000 Intake Total 100 450 Output Total 300 Balance 100 150 Intake, Oral 100 450 Output, Urine 300 Patient 284 lb Weight Impression/Plan Impression/Plan Impression/Plan: Physical Exam: General: WD/obese female in NAD; alert and oriented x 3 HEENT: NC/AT, PERRL, EOMI, clear oropharnx Neck: no JVD, no carotid bruit Heart: RRR with 2/6 systolic murmur Lungs: no crackles or wheezing ABdomen: soft, NT, +ve bowel sounds Extremities: left BKA, no edema Impression This is a lady with history of hypertension, insulin dependent diabetes, EF of 40% with previous systolic heart failure, significant COPD, previous below-knee amputation on the left side, ongoing on and off smoker, medical noncompliance, history suggestive of significant obesity hypoventilation syndrome now comes in with * Resolved Acute hypercarbic respiratory failure with rapid improvement. Pt now has influenza * Mild acute COPD exacerbation * Right more than left heart failure with cor pulmonale from significant COPD and as well as left heart dysfunction * Morbid obesity with us evidence suggestive of obstructive sleep apnea * Chronic hypercarbia probably related to obesity hypoventilation syndrome and moderate COPD. * Hypertension hyperlipidemia insulin-dependent diabetes appears to be stable * Mild acute kidney injury with slightly worsening BUN and creatinine upon admission * Previous history of mediastinal lymphadenopathy probably related to heart failure needs follow-up CT scan in August of this year RECOMMENDATION * Reduce steroids to 20 mg for one more days and stop * Tamiflu for five days * Continue her current medications * Symbicort and Spiriva upon dc * Increase activity * Reduce oxygen to keep O2 sat around 92% Ok to dc Pt will see me next week
--- NOTE | 2016-06-02 15:57 | ECHOCARDIOGRAM REPORT ---
DARRON DEJESUS Age: 61 : 1955 Gender: F Exam Date: 06/01/2016 18:58 Exam Location: [address] Ht (in): 64 Wt (lb): 283 BSA: 2.49 BP: 146 / 70 Ordering Physician: AGNIESZKA FUENTES MD Referring Physician: Elpidio Sutherland MD Technologist: Alana Shine [facility] Room Number: 176 Indications: CHEST PAIN Rhythm: Sinus Technical Quality: Good FINDINGS Left Ventricle Mild left ventricular dilatation. Moderate concentric left ventricular hypertrophy. Mildly decreased left ventricular systolic function. Normal left ventricular ejection fraction visually estimated at 40-45 %. "pseudonormal" filling pattern of the left ventricle for age (stage 2 diastolic dysfunction). Right Ventricle Normal right ventricular size and function. Right Atrium Normal right atrial size. Left Atrium Mild left atrial dilatation. Mitral Valve Mitral valve thickened. Moderate mitral regurgitation. Aortic Valve Diffuse thickening (sclerosis) of the aortic valve cusps without reduced excursion. No aortic stenosis. No aortic regurgitation. Tricuspid Valve Tricuspid valve not well visualized, grossly normal. Mild tricuspid regurgitation. Right ventricular systolic pressure estimated to be elevated at 63 mmHg. Pulmonic Valve Pulmonic valve not well visualized, grossly normal. Mild pulmonic regurgitation. Pericardium No pericardial effusion. Great Vessels Normal size aortic root. CONCLUSIONS Mild left ventricular dilatation. Moderate concentric left ventricular hypertrophy. Mildly decreased left ventricular systolic function. Normal left ventricular ejection fraction visually estimated at 40- 45 %. "pseudonormal" filling pattern of the left ventricle for age (stage 2 diastolic dysfunction). Mild left atrial dilatation. Moderate mitral regurgitation. Mild tricuspid regurgitation. Right ventricular systolic pressure estimated to be elevated at 63 mmHg. Mild pulmonic regurgitation. Elpidio Sutherland M.D. (Electronically Signed) Final Date: 02 June 2016 15:56 MEASUREMENTS (Male / Female) Normal Values 2D ECHO LV Diastolic Diameter PLAX 6.0 cm 4.2 - 5.9 / 3.9 - 5.3 cm LV Systolic Diameter PLAX 4.7 cm 2.1 - 4.0 cm LV Fractional Shortening PLAX 21.7 % 25 - 46 % LV Ejection Fraction 2D Teich 43.1 % IVS Diastolic Thickness 1.6 cm LVPW Diastolic Thickness 1.6 cm LV Relative Wall Thickness 0.5 RV Internal Dim ED PLAX 3.0 cm 1.9 - 3.8 cm LVOT Diameter 2.3 cm Aortic Root Diameter 3.3 cm LA Systolic Diameter LX 6.0 cm 3.0 - 4.0 / 2.7 - 3.8 cm LA Volume 72.0 cm 18 - 58 / 22 - 52 cm Ascending Aorta Diameter 3.0 cm DOPPLER AV Peak Velocity 152.0 cm/s AV Peak Gradient 9.2 mmHg AV Mean Velocity 104.0 cm/s AV Mean Gradient 5.0 mmHg AV Velocity Time Integral 32.3 cm LVOT Peak Velocity 91.9 cm/s LVOT Peak Gradient 3.4 mmHg LVOT Mean Velocity 63.7 cm/s LVOT Mean Gradient 2.0 mmHg LVOT Velocity Time Integral 17.0 cm LVOT Stroke Volume 70.6 cm AV Area Cont Eq vti 2.2 cm AV Area Cont Eq pk 2.5 cm MV Peak Velocity 169.0 cm/s MV Peak Gradient 11.4 mmHg MV Mean Velocity 97.1 cm/s MV Mean Gradient 4.0 mmHg Mitral E Point Velocity 130.0 cm/s Mitral A Point Velocity 98.2 cm/s Mitral E to A Ratio 1.3 MV PHT Velocity 176.0 cm/s MV Deceleration [place] 1014.0 cm/s MV Pressure Half Time 52.1 ms MV Area PHT 4.2 cm MV Deceleration Time 166.0 ms TR Peak Velocity 364.0 cm/s TR Peak Gradient 53.0 mmHg Right Atrial Pressure 10.0 mmHg Pulmonary Artery Systolic Pressu 63.0 mmHg Right Ventricular Systolic Press 63.0 mmHg PV Peak Velocity 83.7 cm/s PV Peak Gradient 2.8 mmHg PV Mean Velocity 62.2 cm/s PV Mean Gradient 2.0 mmHg PV Velocity Time Integral 21.2 cm LV E' Lateral Velocity 6.3 cm/s Mitral E to LV E' Lateral Ratio 20.7 LV E' Septal Velocity 2.8 cm/s Mitral E to LV E' Septal Ratio 45.9
--- NOTE | 2016-06-25 15:20 | Discharge Summary ---
Visit Information Visit Dates Admission Date: 05/30/16 Discharge Date: 06/02/16 Hospital Course Course Attending Physician: DIPAK CHAVEZ MD Primary Care Physician: PATIENT HAS NO PRIMARY CARE DR Hospital Course: Patient is 61-year-old female with past medical history of hypertension, diabetes, systolic heart failure came with the chief complaint of difficulty breathing. She had hypercarbic respiratory failure on admission and was initially started on BiPAP. Her ABGs improved. She was started on 40 IV Lasix daily, NovoLog sliding scale and her home medications including losartan and Coreg. Chest x-ray Showed Hazy basilar opacities with bronchial wall thickening. It was thought to be associated with a small airways process versus mild edema. Patient was seen and treated for following problems 1.Acute hypercarbic respiratory failure 2.History of congestive heart failure with possible exacerbation 3.Acute renal failure 4.Hyperkalemia 5.Abnormal LFTs and elevated bilirubin- possibly either due to medication or congestion of liver Acute hypoxic/hypercarbic respiratory failure Patients rapid flu from came out to be positive, patient was started on Tamiflu for a total of 5 days 75 mg twice a day. Her sputum was negative for Gram stain, her lower respiratory culture is negative. Blood cultures were negative. Patient probably had URBAN, and would need outpatient sleep study. TRC nebs as needed were provided while in patient. Ipratropium every 6 hours round the clock along with albuterol Spiriva and Symbicort were to be restarted upon discharge. Patient was continued on Tamiflu and prednisone taper on discharge. Systolic congestive heart failure Patient was given IV lasix initially later switched to her home dose of 40 by mouth twice a day. Cardiology consult service was on board. Her echocardiogram showed Normal left ventricular ejection fraction visually estimated at 40- 45 % "pseudonormal" filling pattern of the left ventricle for age (stage 2 diastolic dysfunction). Patient was ruled out for ACS. She was continued on her home meds of statin, carvedilol, aspirin. Transaminitis Her LFTs were slightly elevated on admission however they were monitored and they improved. Acute kidney injury Her creatinine was 1 on admission and he was recommended oral hydration. Allergies: Coded Allergies: NO KNOWN ALLERGIES (11/20/12) Disposition Summary Disposition Principal Diagnosis: Acute hypoxic respiratory failure Additional Diagnosis: as above Discharge Disposition: home or self care Discharge Instructions General Discharge Information Code Status: Do Not Resucitate/Intubat Patient's Diet: heart healthy Patient's Activity: as tolerated Follow-Up Instructions/Appts: Please follow up with PCP upon discharge Medications at Discharge Discharge Medications: Continue taking these medications: Carvedilol (Carvedilol) 25 MG TABLET 1 Tablet ORAL TWICE DAILY Qty = 60 Comments: Last Taken:09/08/15 Time:1000 Losartan Potassium (Losartan Potassium) 100 MG TABLET 1 Tablet ORAL DAILY Qty = 30 Comments: Last Taken:09/08/15 Time:1000 Insulin Detemir (Levemir Flextouch) 100 UNIT/1 ML INSULN.PEN 25 Units Inject into fatty tissue DAILY Qty = 15 Comments: Last Taken:09/08/15 Time:1000 Insulin Lispro (Humalog Kwikpen U-100) 100 UNIT/1 ML INSULN.PEN 10 Units Inject into fatty tissue BEFORE MEALS Qty = 15 Comments: Last Taken:09/08/15 Time:1200 Aspirin (Ecotrin) 81 MG TABLET.DR 1 Tablet ORAL DAILY Qty = 30 Comments: Last Taken:09/08/15 Time:1000 Tiotropium [place] (Spiriva) 18 MCG CAP.W.DEV 1 Puff Inhale through mouth DAILY Days = 30 Comments: Last Taken:09/08/15 Time:1000 Atorvastatin Calcium (Atorvastatin Calcium) 40 MG TABLET 40 Milligram ORAL 5 PM Days = 30 Comments: Last Taken:09/08/15 Time:1700 Budesonide/Formoterol Fumarate (Symbicort 160-4.5 Mcg Inhaler) 10.2 GM HFA.AER.AD 2 Puff Inhale through mouth TWICE DAILY Days = 30 Comments: Last Taken:09/08/15 Time:1000 Furosemide (Furosemide) 40 MG TABLET 1 Tablet ORAL TWICE DAILY Days = 30 Comments: Last Taken:09/08/15 Time:1000 GIVEN IN IV FORM Start taking the following new medications: Prednisone (Prednisone) 10 MG TABLET 1 Tablet ORAL TWICE DAILY Days = 2 No Refills Instructions: 06/03/16 take 3 tablets 06/04/16 take 3 tablets then stop and follow up with your cuff maker Guaifenesin (Mucinex) 1,200 MG TAB.ER.12H 1 Tablet ORAL TWICE DAILY as needed for as needed for cough Days = 30 No Refills Benzonatate (Tessalon [place]) 100 MG CAPSULE 1 Capsule ORAL THREE TIMES DAILY as needed for for cough Qty = 21 No Refills Oseltamivir Phosphate (Tamiflu) 75 MG CAPSULE 1 Capsule ORAL TWICE DAILY Days = 4 No Refills Copies To: DIPAK CHAVEZ MD
== END 2016-06-02 14:43 | DRG 291 ==
LOC: ENRESERVDT → CANRESERV → ENRESERVTM → ERH 03:29 → ENPENDDIS 04:09 → ERHI 04:09 → 1NO 04:09 → EDBEDREQ 05:53 → ERHI 05:57 → 1NO 10:26
PROVIDERS: Emergency Medicine; Internal Medicine; Student in an Organized Health Care Education/Training Program; ADMIT Student in an Organized Health Care Education/Training Program
PROC: 5A09357 Assistance with Respiratory Ventilation, Less than 24 Consecutive Hours, Continuous Positive Airway Pressure (ICD-10-PCS; principal; 2016-05-30)
DX: I11.0 Hypertensive heart disease with heart failure (principal); J96.22 Acute and chronic respiratory failure with hypercapnia; N17.9 Acute kidney failure, unspecified; E66.2 Morbid (severe) obesity with alveolar hypoventilation; J44.1 Chronic obstructive pulmonary disease with (acute) exacerbation; I50.23 Acute on chronic systolic (congestive) heart failure; Z79.4 Long term (current) use of insulin; E11.65 Type 2 diabetes mellitus with hyperglycemia; J11.1 Influenza due to unidentified influenza virus with other respiratory manifestations; E87.5 Hyperkalemia; Z68.39 Body mass index [BMI] 39.0-39.9, adult; Z89.512 Acquired absence of left leg below knee; Z87.891 Personal history of nicotine dependence
CPT/HCPCS: 1NP; 36415; 82436; 87040; 87070; 87804; 87804-59; 93005; 93010; 93306; 96374; 96375; 99291; J1644; J1940; J2930; J3490; Q2036